=== PATIENT | male | born 1945 | race Caucasian/White ===

== ENCOUNTER 2017-07-14 00:42 | Emergency (ER) | payer OTHER ==
[2017-07-14] MEDS ORDERED: NS 0.9% 1000 ML* 1,000 ML IV ONE (01:01)
[2017-07-14] MEDS ORDERED: Pantoprazole IV* 40 MG IV ONE (01:01)
[2017-07-14] MEDS ORDERED: Morphine INJ* 4 MG/ML 1 ML SYRINGE (NEW SYRINGE VERSION) IV ONE (01:05)
[2017-07-14] MEDS ORDERED: Metoclopramide IV* 5 MG/ML 2 ML VIAL IV SLOW PU ONE (01:06)
--- NOTE | 2017-07-14 01:11 | ED ---
GI/ HPI - HPI Summary HPI Summary: 71-year-old male presents with acute onset of epigastric pain today. He states he has never had this pain before. He states it is sharp in nature. He states it is located in both his right and left upper quadrant. He denies any chest pain or shortness breath. He denies any nausea or vomiting. He denies any diarrhea. He denies any fevers. He states since the pain is starting started to feel chills. He has no previous abdominal surgeries. He denies any flank pain. occasionally pain goes to right shoulder. He denies any history of acid reflux. He states the pain started when he was laying down in bed. Nothing makes it better or worse. He had meatOptoroaf sandwich tonight for dinner. He did have an MS 2 years ago with a stent placement. He also has a history of high blood pressure. He rarely drinks ETOH. - History of Current Complaint Chief Complaint: EDAbdPain Time Seen by Provider: 07/14/17 00:53 Stated Complaint: ABD PAIN Pain Intensity: 7 - Allergy/Home Medications Allergies/Adverse Reactions: Allergies Allergy/AdvReac Type Severity Reaction Status Date / Time erythromycin base Allergy Heartburn Verified 07/14/17 00:50 Penicillins Allergy Unknown Verified 07/14/17 00:50 Reaction Details PMH/Surg Hx/FS Hx/Imm Hx Endocrine/Hematology History: Reports: Hx Anticoagulant Therapy - Before having vericose veins removed Denies: Hx Blood Disorders, Hx Blood Transfusions, Hx Bone Marrow Disease, Hx Diabetes, Hx Systemic Lupus Erythematosus, Hx Sickle Cell Disease, Hx Thyroid Disease, Hx Unexplained Bleeding, Other Endocrine/Hematological Disorders Cardiovascular History: Reports: Hx Hypertension, Hx Myocardial Infarction, Other Cardiovascular Problems/Disorders - VEIN SURG RIGHT LEG 8-10 YRS AGO, DYSLIPIDEMIA Respiratory History: Reports: Hx Sleep Apnea Denies: Hx Asthma, Hx Chronic Bronchitis, Hx Chronic Obstructive Pulmonary Disease (COPD), Hx Cystic Fibrosis, Hx Lung Cancer, Hx Pleural Effusion, Hx Pneumonia, Hx Pulmonary Edema, Hx Pulmonary Embolism, Hx Seasonal Allergies, Other Respiratory Problems/Disorders History: Reports: Hx Benign Prostatic Hyperplasia, Hx Kidney Stones Denies: Hx Acute Renal Failure, Hx Chronic Renal Failure, Hx Dialysis, Hx Kidney Infection, Other Problems/Disorders Musculoskeletal History: Reports: 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, Hx Congenital Bone Abnormalities - See back problems Denies: Hx Arthritis, Hx Bursitis, Hx Fibromyalgia, Hx Gout, Hx Orthopedic Injury, Hx Osteoporosis, Hx Scoliosis, Hx Tendonitis, Other Musculoskeletal History Sensory History: Reports: Hx Cataracts, 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, Hx Vision Problem - see above Denies: Hx Contacts or Glasses, Hx Eye Injury, Hx Eye Prosthesis, Hx Glaucoma , Hx Macular Degeneration, Hx Deafness, Hx Hearing Aid, Hx Hearing Problem, Other Sensory Impairments Opthamlomology History: Reports: Hx Cataracts, 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, Hx Vision Problem - see above Denies: Hx Contacts or Glasses, Hx Eye Injury, Hx Eye Prosthesis, Hx Glaucoma , Hx Macular Degeneration, Other Sensory Impairments - Surgical History Surgery Procedure, Year, and Place: 1967 hand injured by saw and re-implanted Hx Anesthesia Reactions: No - Immunization History Date of Tetanus Vaccine: unk Date of Influenza Vaccine: fall 2016 Immunizations Up to Date: Yes Infectious Disease History: No Infectious Disease History: Denies: Hx Clostridium Difficile, Hx Hepatitis, Hx Human Immunodeficiency Virus (HIV), Hx of Known/Suspected MRSA, Hx Shingles, Hx Tuberculosis, Hx Known/ Suspected VRE, Hx Known/Suspected VRSA, History Other Infectious Disease, Traveled Outside the [place] in Last 30 Days - Family History Known Family History: Positive: Hypertension - Social History Alcohol Use: Rare Alcohol Amount: 1-2/YEAR Substance Use Type: Reports: None Smoking Status (MU): Never Smoked Tobacco Have You Smoked in the Last Year: No Review of Systems Negative: Fever Negative: Chest Pain Negative: Shortness Of Breath Positive: Abdominal Pain. Negative: Vomiting, Diarrhea, Nausea Negative: flank pain All Other Systems Reviewed And Are Negative: Yes Physical Exam Triage Information Reviewed: Yes Vital Signs On Initial Exam: Initial Vitals Temp Pulse Resp BP Pulse Ox 96.6 F 90 18 128/78 95 07/14/17 00:48 07/14/17 00:48 07/14/17 00:48 07/14/17 00:48 07/14/17 00:48 Vital Signs Reviewed: Yes Appearance: Positive: Pain Distress Skin: Positive: Warm, Dry Head/Face: Positive: Normal Head/Face Inspection Eyes: Positive: Normal, Conjunctiva Clear Respiratory/Lung Sounds: Positive: Clear to Auscultation, Breath Sounds Present Cardiovascular: Positive: Normal, RRR Abdomen Description: Positive: Soft, Guarding, Other: - tenderness in RUQ and LUQ. Negative: CVA Tenderness (R), CVA Tenderness (L) Bowel Sounds: Positive: Present Musculoskeletal: Positive: Normal Neurological: Positive: Normal Psychiatric: Positive: Normal Diagnostics - Vital Signs Vital Signs Temp Pulse Resp BP Pulse Ox 07/14/17 00:48 96.6 F 90 18 128/78 95 - Laboratory Result Diagrams: 07/14/17 01:28 07/14/17 01:28 Lab Statement: Any lab studies that have been ordered have been reviewed, and results considered in the medical decision making process. - EKG No standard instances Cardiac Rate: NL EKG Rhythm: Sinus Rhythm ST Segment: Normal EKG Interpretation: normal sinus rhythm EKG Comparison: Other - improved Re-Evaluation - Re-Evaluation First Eval Re-Evaluation Time: 02:03 Change: Unchanged Comment: patient still in extreme amount of pain, has good bilteral pulses in lower legs, GIGU Course/Dx - Course Course Of Treatment: 71-year-old male presents with acute onset of epigastric pain today. He states he has never had this pain before. He states it is sharp in nature. He states it is located in both his right and left upper quadrant. He denies any chest pain or shortness breath. He denies any nausea or vomiting. He denies any diarrhea. He denies any fevers. He states since the pain is starting started to feel chills. He has no previous abdominal surgeries. He did have an MS 2 years ago with a stent placement. He also has a history of high blood pressure. He denies any history of acid reflux. He states the pain started when he was laying down in bed. Nothing makes it better or worse. He had meatloaf sandwich tonight for dinner. On exam has tenderness in the right and left upper quadrant. Positive Shirley signs. Patient is guarding. Lungs clear to auscultation. Heart regular rate and rhythm. EKG normal. labs: wbc normal 4. crp 4. Lfts normal. troponin normal. patient in extreme amount of pain so spoke with dr fernando will do CT without completing oral prep. patient signed out to dr fernando pending CT results for disposition - Diagnoses Differential Diagnoses - Male: Cholecystitis, Cholelithiasis, Gall Bladder Disease, Gastritis, Gerd, Pancreatitis, Peptic Ulcer Disease Provider Diagnoses: Abdominal pain Discharge - Discharge Plan Condition: Stable Disposition: OTHER Discharge Disposition Comment: signed out to dr fernando pending CT Referrals: Lesa Do MD [Primary Care Provider] -
[2017-07-14] MEDS ORDERED: HYDROmorphone INJ* 2 MG/ML CARPUJECT SYRINGE IV SLOW PU ONE ×2 (01:51→02:36)
[2017-07-14 01:56] LABS: ABS Basophils 0.1 10^3/ul (0-0.2); ABS Eosinophils 0.1 10^3/ul (0-0.6); ABS Lymphocytes 2.4 10^3/ul (1.0-4.8); ABS Monocytes 0.7 10^3/ul (0-0.8); ABS Neutrophils 7.5 10^3/ul (1.5-7.7); ABS Nucleated RBC 0.1 10^3/ul; Eosinophil % 1.3 % (0-6); Hematocrit 45 % (42-52); Hemoglobin 15.3 g/dl (14.0-18.0); Lymphocyte % 21.8 % (25-47); Mean Corpuscular HGB Conc 34 g/dl (31-36); Mean Corpuscular Hemoglobin 31 pg (27-31); Mean Corpuscular Volume 89 fL (80-94); Mean Platelet Volume 8 um3 (7.4-10.4); Nucleated Red Blood Cells % 0.5; Platelet Count 201 10^3/ul (150-450); Red Blood Count 5.02 10^6/ul (4.0-5.4); Red Cell Distribution Width 13 % (10.5-15); White Blood Count 10.8 10^3/ul (3.5-10.8)
[2017-07-14 02:06] LABS: EGFR Non-African American 89.4 (>60)
[2017-07-14] MEDS ORDERED: Iohexol 300* (CONTRAST) 10 ML SDV IV ONE (02:24)
[2017-07-14 02:51] LABS: INR 0.99 (0.77-1.02)
[2017-07-14 04:36] LABS: ABS Basophils 0 10^3/ul (0-0.2); ABS Eosinophils 0 10^3/ul (0-0.6); ABS Lymphocytes 1.2 10^3/ul (1.0-4.8); ABS Monocytes 0.8 10^3/ul (0-0.8); ABS Neutrophils 16.6 10^3/ul (1.5-7.7); ABS Nucleated RBC 0 10^3/ul; Eosinophil % 0 % (0-6); Hematocrit 39 % (42-52); Hemoglobin 13.2 g/dl (14.0-18.0); Lymphocyte % 6.4 % (25-47); Mean Corpuscular HGB Conc 34 g/dl (31-36); Mean Corpuscular Hemoglobin 30 pg (27-31); Mean Corpuscular Volume 89 fL (80-94); Mean Platelet Volume 8 um3 (7.4-10.4); Nucleated Red Blood Cells % 0.1; Platelet Count 201 10^3/ul (150-450); Red Blood Count 4.36 10^6/ul (4.0-5.4); Red Cell Distribution Width 13 % (10.5-15); White Blood Count 18.6 10^3/ul (3.5-10.8)
[2017-07-14] MEDS ORDERED: Furosemide IV* 10 MG/ML 10 ML VIAL (100 MG) ONE (05:24)
[2017-07-14 05:35] VITALS: BP 115/80
[2017-07-14] MEDS ORDERED: Ondansetron ODT TAB* 4 MG PO ONE (05:45)
--- NOTE | 2017-07-14 10:06 | RAD ---
Indication: Abdominal pain. Contrast: Administered 145.3 ml of OMNIPAQUE 300 mg/ml CT of the abdomen and pelvis was performed after oral and IV contrast administration. Coronal and sagittal reconstructed images were obtained. Lung bases demonstrate no pleural fluid, nodules or masses. Heart is enlarged without evidence of pericardial effusion. The liver is normal in size. There is a mass in the right lobe of liver measuring approximately 5.6 cm. In the inferior aspect of the mass there is contrast that is extremely dense. The possibility of a rupture of the mass should be considered. There is likely hemorrhagic ascites noted surrounding this mass in the right upper quadrant. Additional hemorrhagic ascites is noted around the spleen and in the pelvis with high density fluid. The spleen is normal in size. No adrenal masses are noted. The kidneys demonstrate symmetric nephrograms with multiple cortical cyst. No retroperitoneal adenopathy is noted. The colon is filled with stool. No dilated loops of bowel are noted. No hernias are noted. Moderate amount of ascites is noted in the pelvis. IMPRESSION: There is an hepatic mass in the inferior aspect of the right lobe of liver with suggestion of contrast extravasation. There is hemorrhagic ascites noted. Acute rupture of the mass is not excluded. This was reported by imaging quality control lead at 3:59 AM.
--- NOTE | 2017-07-15 23:31 | ED ---
I, Stefany Collado, scribed for Teddy Fernando on 07/14/17 at 0436 . Progress - Progress Note Progress Note: The patient has a bleeding liver. The patient was discussed with Dr. Kris Gracia at 04:20, and [facility] accepted the transfer at 04:45. Air transportation was not available at this time, so the patient will be transferred by ambulance. The patient is diagnosed with Abdominal Pain and Liver Hemorrhage. Re-Evaluation - Re-Evaluation First Eval Re-Evaluation Time: 02:03 Change: Unchanged Comment: patient still in extreme amount of pain, has good bilteral pulses in lower legs, Course/Dx - Course Course Of Treatment: 71-year-old male presents with acute onset of epigastric pain today. He states he has never had this pain before. He states it is sharp in nature. He states it is located in both his right and left upper quadrant. He denies any chest pain or shortness breath. He denies any nausea or vomiting. He denies any diarrhea. He denies any fevers. He states since the pain is starting started to feel chills. He has no previous abdominal surgeries. He did have an KS 2 years ago with a stent placement. He also has a history of high blood pressure. He denies any history of acid reflux. He states the pain started when he was laying down in bed. Nothing makes it better or worse. He had meatloaf sandwich tonight for dinner. On exam has tenderness in the right and left upper quadrant. Positive Shirley signs. Patient is guarding. Lungs clear to auscultation. Heart regular rate and rhythm. EKG normal. labs: wbc normal 4. crp 4. Lfts normal. troponin normal. patient in extreme amount of pain so spoke with dr fernando will do CT without completing oral prep. patient signed out to dr fernando pending CT results for disposition - Diagnoses Provider Diagnoses: Abdominal pain, Liver hemorrhage - Provider Notifications Discussed Care Of Patient With: Dr. Kris Gracia Time Discussed With Above Provider: 04:20 Instructed by Provider To: Transfer - Discussed patient with Dr. Kris Gracia. Called [facility] @ 04:45, and they have accepted the transfer patient. The documentation as recorded by the Tobias jeffries Jennifer accurately reflects the service I personally performed and the decisions made by , Teddy Fernando.
== END 2017-07-14 05:35 | disposition short-term general hospital (02) ==
LOC: ED 00:42
DX: R10.13 Epigastric pain (principal); K76.89 Other specified diseases of liver; Z79.01 Long term (current) use of anticoagulants; Z86.79 Personal history of other diseases of the circulatory system
CPT/HCPCS: 36415; 36430; 74177; 80053; 83605; 83690; 84484; 85025; 85610; 85730; 86141; 86850; 86900; 86901; 86922; 93005; 99284; J1170; J1940; J2270; J2765; P9040; Q9967

== ENCOUNTER 2018-07-03 21:18 | Emergency (ER) | payer OTHER ==
[2018-07-03] MEDS ORDERED: NS 0.9% 1000 ML** 1,000 ML IV.FLUID IV ONE ×2 (21:45)
[2018-07-03] MEDS ORDERED: Morphine VIAL* 10 MG/ML 1 ML VIAL IV ONE (21:47)
[2018-07-03] MEDS ORDERED: Ondansetron INJ* 2 MG/ML VIAL IV ONE (21:48)
--- NOTE | 2018-07-03 22:01 | ED ---
HPI Chest Pain - HPI Summary HPI Summary: This patient is a 72 year old male presenting to [facility] accompanied by with a chief complaint of chest pain since earlier today. Patient has a hx of cardiac disease (in 2015), as well as liver cancer. Patients states that the patient has been sick for the past week with a low-grade fever and has been consistently lethargic. Patient presents today in the ED because the pain was sudden onset and began 2 hours ago. The pain is located in the lower chest and upper abd. The pain radiates to his back. The pain is rated 7/10 in severity. Symptoms aggravated by position change or deep breaths. Symptoms alleviated by nothing. Patient additionally reports upper abd pain. - History of Current Complaint Chief Complaint: EDAbdPain Time Seen by Provider: 07/03/18 21:36 Hx Obtained From: Patient Onset/Duration: Started Hours Ago, Still Present Timing: Constant Initial Severity: Moderate Pain Intensity: 7 Pain Scale Used: 0-10 Numeric Chest Pain Location: Lower Sternal Chest Pain Radiates: Yes Chest Pain Radiates To:: Back Aggravating Factor(s): Position, Deep Breaths Alleviating Factor(s): Nothing Associated Signs and Symptoms: Positive: Other: - upper abd pain - Allergy/Home Medications Allergies/Adverse Reactions: Allergies Allergy/AdvReac Type Severity Reaction Status Date / Time erythromycin base Allergy Heartburn Verified 07/03/18 21:23 Penicillins Allergy Unknown Verified 07/03/18 21:23 Reaction Details Home Medications: Home Medications Xarelto 20 mg 20 mg PO DAILY 07/03/18 [History Confirmed 07/03/18] PMH/Surg Hx/FS Hx/Imm Hx Previously Healthy: No Endocrine/Hematology History: Reports: Hx Anticoagulant Therapy - Before having vericose veins removed Denies: Hx Blood Disorders, Hx Blood Transfusions, Hx Bone Marrow Disease, Hx Diabetes, Hx Systemic Lupus Erythematosus, Hx Sickle Cell Disease, Hx Thyroid Disease, Hx Unexplained Bleeding, Other Endocrine/Hematological Disorders Cardiovascular History: Reports: Hx Deep Vein Thrombosis, Hx Hypertension, Hx Myocardial Infarction, Other Cardiovascular Problems/Disorders - VEIN SURG RIGHT LEG 8-10 YRS AGO, DYSLIPIDEMIA Respiratory History: Reports: Hx Pulmonary Embolism - saddle, Hx Sleep Apnea Denies: Hx Asthma, Hx Chronic Bronchitis, Hx Chronic Obstructive Pulmonary Disease (COPD), Hx Cystic Fibrosis, Hx Lung Cancer, Hx Pleural Effusion, Hx Pneumonia, Hx Pulmonary Edema, Hx Seasonal Allergies, Other Respiratory Problems /Disorders GI History: Reports: Other GI Disorders - Hx liver bleeding History: Reports: Hx Benign Prostatic Hyperplasia, Hx Kidney Stones Denies: Hx Acute Renal Failure, Hx Chronic Renal Failure, Hx Dialysis, Hx Kidney Infection, Hx Renal Disease, Other Problems/Disorders Musculoskeletal History: Reports: 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, Hx Congenital Bone Abnormalities - See back problems Denies: Hx Arthritis, Hx Bursitis, Hx Fibromyalgia, Hx Gout, Hx Orthopedic Injury, Hx Osteoporosis, Hx Scoliosis, Hx Tendonitis, Other Musculoskeletal History Sensory History: Reports: Hx Cataracts, 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, Hx Vision Problem - see above Denies: Hx Contacts or Glasses, Hx Eye Injury, Hx Eye Prosthesis, Hx Glaucoma , Hx Macular Degeneration, Hx Deafness, Hx Hearing Aid, Hx Hearing Problem, Other Sensory Impairments Opthamlomology History: Reports: Hx Cataracts, 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, Hx Vision Problem - see above Denies: Hx Contacts or Glasses, Hx Eye Injury, Hx Eye Prosthesis, Hx Glaucoma , Hx Macular Degeneration, Other Sensory Impairments - Surgical History Surgery Procedure, Year, and Place: 1967 hand injured by saw and re-implanted, rt leg "vein surgery", hepatic artery embolization Hx Anesthesia Reactions: No - Immunization History Date of Tetanus Vaccine: unk Date of Influenza Vaccine: fall 2016 Infectious Disease History: No Infectious Disease History: Denies: Hx Clostridium Difficile, Hx Hepatitis, Hx Human Immunodeficiency Virus (HIV), Hx of Known/Suspected MRSA, Hx Shingles, Hx Tuberculosis, Hx Known/ Suspected VRE, Hx Known/Suspected VRSA, History Other Infectious Disease, Traveled Outside the [place] in Last 30 Days - Family History Known Family History: Positive: Hypertension - Social History Lives: With Family Alcohol Use: Rare Alcohol Amount: 1-2/YEAR Hx Substance Use: No Substance Use Type: Reports: None Hx Tobacco Use: No Smoking Status (MU): Never Smoked Tobacco Have You Smoked in the Last Year: No Review of Systems Negative: Fever Positive: Chest Pain Positive: Abdominal Pain Musculoskeletal: Other - back pain All Other Systems Reviewed And Are Negative: Yes Physical Exam - Summary Physical Exam Summary: VITAL SIGNS: Reviewed. GENERAL: Patient is a well-developed and nourished male who is lying comfortable in the stretcher. Patient is not in any acute respiratory distress. HEAD AND FACE: No signs of trauma. No ecchymosis, hematomas or skull depressions. No sinus tenderness. EYES: PERRLA, EOMI x 2, No injected conjunctiva, no nystagmus. EARS: Hearing grossly intact. Ear canals and tympanic membranes are within normal limits. MOUTH: Oropharynx within normal limits. NECK: Supple, trachea is midline, no adenopathy, no JVD, no carotid bruit, no c- spine tenderness, neck with full ROM. CHEST: Symmetric, no tenderness at palpation LUNGS: Clear to auscultation bilaterally. No wheezing or crackles. CVS: Regular rate and rhythm, S1 and S2 present, no murmurs or gallops appreciated. ABDOMEN: RUQ tenderness, abd distention EXTREMITIES: FROM in all major joints, no edema, no cyanosis or clubbing. NEURO: Alert and oriented x 3. No acute neurological deficits. Speech is normal and follows commands. SKIN: Dry and warm Triage Information Reviewed: Yes Vital Signs On Initial Exam: Initial Vitals Temp Pulse Resp BP Pulse Ox 97.9 F 104 20 140/77 93 07/03/18 21:19 07/03/18 21:19 07/03/18 21:19 07/03/18 21:19 07/03/18 21:19 Vital Signs Reviewed: Yes Diagnostics - Vital Signs Vital Signs Temp Pulse Resp BP Pulse Ox 07/03/18 21:19 97.9 F 104 20 140/77 93 - Laboratory Result Diagrams: 07/03/18 22:18 07/03/18 22:18 Lab Statement: Any lab studies that have been ordered have been reviewed, and results considered in the medical decision making process. - Radiology CXR Radiology Interpretation Completed By: ED Physician Summary of Radiographic Findings: CXR reveals, per ED physician, Poor inspiratory effort with bilateral basal atelectasis. Pending official report. - CT CTA Chest/Abd/Pel CT Interpretation Completed By: Radiologist Summary of CT Findings: CTA Chest/Abd/Pel reveals, per radiologist, IMPRESSION: 1. There is a new indeterminate right upper lobe pulmonary nodule measuring 7.5 mm maximum dimension and stable additional 5 mm right middle lobe indeterminate pulmonary nodule.For patients at low risk (minimal or absent history of smoking and of other known risk factors), recommend CT at 3-6 months, then consider CT at 18-24 months. For patients at high risk (history of smoking or of other known risk factors), recommend CT at 3-6 months, then CT at 18-24 months. ( Buddy et al., Fleischner Society, 2017). 2. The previously seen bilateral acute pulmonary emboli are resolved with no visible residual or new pulmonary embolism. 3. No aortic dissection. IMPRESSION: 1. Stable colonic diverticulosis without evidence for acute diverticulitis. 2. There is significant increase in size and number of multiple now confluent mass lesions in the right lobe of the liver which now measure in aggregate a maximum of 13.3 cm and previously measured a maximum of 5.0 cm, suspicious for worsening of hepatic metastases. There is a new 0.8 cm low attenuation mass near the dome of the liver, also possible hepatic metastasis. 3. There is slight decrease in quantity of right perihepatic hemorrhage and resolution of previously seen perisplenic hemorrhage and decreased additional hemorrhage along the left paracolic gutter into the pelvis since the prior exam with no signs of IV contrast extravasation/active arterial bleeding. 4. No aortic dissection. ED physician has reviewed this radiology report. - EKG 2153 Cardiac Rate: NL EKG Rhythm: Sinus Rhythm - 99 BPM Summary of EKG Findings: An EKG, taken 2153, reveals NSR (99 BPM), normal axis, normal intervals, no ischemic changes. Chest Pain Course/Dx - Course Course Of Treatment: This patient is a 72 year old male presenting to [facility] accompanied by with a chief complaint of chest pain since earlier today. Patient has a hx of cardiac disease (in 2015), as well as liver cancer. Patient s states that the patient has been sick for the past week with a low-grade fever and has been consistently lethargic. Patient presents today in the ED because the pain was sudden onset and began 2 hours ago. An EKG, taken 2153, reveals NSR (99 BPM), normal axis, normal intervals, no ischemic changes. CXR reveals, per ED physician, Poor inspiratory effort with bilateral basal atelectasis. Pending official report. CTA Chest/Abd/Pel reveals, per radiologist , IMPRESSION: 1. There is a new indeterminate right upper lobe pulmonary nodule measuring 7.5 mm maximum dimension and stable additional 5 mm right middle lobe indeterminate pulmonary nodule.For patients at low risk (minimal or absent history of smoking and of other known risk factors), recommend CT at 3-6 months , then consider CT at 18-24 months. For patients at high risk (history of smoking or of other known risk factors), recommend CT at 3-6 months, then CT at 18-24 months. (Buddy et al., Fleischner Society, 2017). 2. The previously seen bilateral acute pulmonary emboli are resolved with no visible residual or new pulmonary embolism. 3. No aortic dissection. IMPRESSION: 1. Stable colonic diverticulosis without evidence for acute diverticulitis. 2. There is significant increase in size and number of multiple now confluent mass lesions in the right lobe of the liver which now measure in aggregate a maximum of 13.3 cm and previously measured a maximum of 5.0 cm, suspicious for worsening of hepatic metastases. There is a new 0.8 cm low attenuation mass near the dome of the liver, also possible hepatic metastasis. 3. There is slight decrease in quantity of right perihepatic hemorrhage and resolution of previously seen perisplenic hemorrhage and decreased additional hemorrhage along the left paracolic gutter into the pelvis since the prior exam with no signs of IV contrast extravasation/active arterial bleeding. 4. No aortic dissection. ED physician has reviewed this radiology report. Bloodwork Obtained. Urinalysis Obtained. In the ED course the patient was given NS 0.9% bolus IV, Morphine, Zofran, Iohexol. We discussed patient care with Dr. Plata (Hospitalist) at 0205 and they agreed to accept the patient. Patient will be admitted with a dx of abd pain, liver cancer. The patient is agreeable with this plan. - Diagnoses Provider Diagnoses: Abdominal pain, Liver cancer - Provider Notifications Discussed Care Of Patient With: Radha Plata - Hospitalist Time Discussed With Above Provider: 02:05 - We discussed patient care with Dr. Plata (Hospitalist) at 0205 and they agreed to accept the patient. Instructed by Provider To: Admit As Inpatient Discharge - Sign-Out/Discharge Documenting (check all that apply): Patient Departure Patient Received Moderate/Deep Sedation with Procedure: No - Discharge Plan Condition: Stable Disposition: ADMITTED TO [facility] Referrals: Lesa Do MD [Primary Care Provider] - - Billing Disposition and Condition Condition: STABLE Disposition: Admitted to [facility] - Attestation Statements Document Initiated by Scribe: Yes Documenting Scribe: Ciera Allred Provider For Whom Mp is Documenting (Include Credential): Haris Khan MD Scriborion Attestation: I, Ciera Allred, scribed for Haris Khan MD on 07/04/18 at 0247. Scribe Documentation Reviewed: Yes Provider Attestation: The documentation as recorded by the Ciera jeffries accurately reflects the service I personally performed and the decisions made by me, Haris Khan MD Status of Scribe Document: Viewed
[2018-07-03 22:27] LABS: ABS Basophils 0.1 10^3/ul (0-0.2); ABS Eosinophils 0.1 10^3/ul (0-0.6); ABS Lymphocytes 0.9 10^3/ul (1.0-4.8); ABS Monocytes 0.7 10^3/ul (0-0.8); ABS Neutrophils 9.4 10^3/ul (1.5-7.7); ABS Nucleated RBC 0 10^3/ul; Eosinophil % 0.6 %; Hematocrit 43 % (42-52); Hemoglobin 14.4 g/dl (14.0-18.0); Lymphocyte % 7.8 %; Mean Corpuscular HGB Conc 34 g/dl (31-36); Mean Corpuscular Hemoglobin 30 pg (27-31); Mean Corpuscular Volume 89 fL (80-94); Mean Platelet Volume 7.7 fL (7.4-10.4); Nucleated Red Blood Cells % 0; Platelet Count 218 10^3/ul (150-450); Red Blood Count 4.81 10^6/ul (4.00-5.40); Red Cell Distribution Width 14 % (10.5-15); White Blood Count 11.1 10^3/ul (3.5-10.8)
[2018-07-03 22:39] LABS: Activated Partial Thrombo Time 29.5 seconds (26.0-36.3); INR 1.29 (0.77-1.02)
[2018-07-03 22:44] LABS: Albumin 3.7 g/dL (3.2-5.2); Albumin/Globulin Ratio 1.1 (1-3); BUN/Creatinine Ratio 22.5 (8-20); C Reactive Protein 40.45 mg/L (<8.01); Calcium 9.3 mg/dL (8.6-10.3); EGFR African American 87.4 (>60); EGFR Non-African American 72.2 (>60); Globulin 3.3 g/dL (2-4); Potassium 4.2 mmol/L (3.5-5.0)
[2018-07-03] MEDS ORDERED: Iohexol 350* (CONTRAST) 500 ML MDV IV ONE (22:49)
[2018-07-03 23:53] LABS: Urine Appearance Cloudy; Urine Bacteria Absent (Absent); Urine Bilirubin Negative (Negative); Urine Blood 3+ (Negative); Urine Color Amber; Urine Glucose Negative (Negative); Urine Ketones Trace (Negative); Urine Nitrite Negative (Negative); Urine Protein Negative (Negative); Urine Red Blood Cell 3+(>10/hpf) (Absent); Urine Specific Gravity 1.025 (1.010-1.030); Urine Urobilinogen Negative (Negative); Urine White Blood Cell 1+(6-10/hpf) (Absent)
[2018-07-04] MEDS ORDERED: Morphine VIAL* 10 MG/ML 1 ML VIAL IV ONE ×2 (00:16→07:22)
[2018-07-04] MEDS ORDERED: Morphine VIAL* 10 MG/ML 1 ML VIAL ONE (00:18)
[2018-07-04 04:58] LABS: Hematocrit 39 % (42-52); Hemoglobin 13.2 g/dl (14.0-18.0)
--- NOTE | 2018-07-04 06:03 | ED ---
Progress - Progress Note Progress Note: Dr. Plata (Hospitalist) is not comfortable admitting the patient here, as there is a high risk of possible bleeding. We will attempt to transfer the patient to a tertiary facility. We spoke to the interventional radiologist, Dr. Becerra at 0550, who stated that they do not have access to the patients images and so cannot tell me if the patients symptoms are chronic or acute. Afterwards, we discussed the case with Dr. Rothman, a fellow for Dr. Ramachandran ( Oncologist), who accepted the patient for transfer to [facility] in [facility]. We called the transfer center at 0603. Course/Dx - Course Course Of Treatment: This patient is a 72 year old male presenting to [facility] accompanied by with a chief complaint of chest pain since earlier today. Patient has a hx of cardiac disease (in 2015), as well as liver cancer. Patient s states that the patient has been sick for the past week with a low-grade fever and has been consistently lethargic. Patient presents today in the ED because the pain was sudden onset and began 2 hours ago. An EKG, taken 2153, reveals NSR (99 BPM), normal axis, normal intervals, no ischemic changes. CXR reveals, per ED physician, Poor inspiratory effort with bilateral basal atelectasis. Pending official report. CTA Chest/Abd/Pel reveals, per radiologist , IMPRESSION: 1. There is a new indeterminate right upper lobe pulmonary nodule measuring 7.5 mm maximum dimension and stable additional 5 mm right middle lobe indeterminate pulmonary nodule.For patients at low risk (minimal or absent history of smoking and of other known risk factors), recommend CT at 3-6 months , then consider CT at 18-24 months. For patients at high risk (history of smoking or of other known risk factors), recommend CT at 3-6 months, then CT at 18-24 months. (Buddy et al., Fleischner Society, 2017). 2. The previously seen bilateral acute pulmonary emboli are resolved with no visible residual or new pulmonary embolism. 3. No aortic dissection. IMPRESSION: 1. Stable colonic diverticulosis without evidence for acute diverticulitis. 2. There is significant increase in size and number of multiple now confluent mass lesions in the right lobe of the liver which now measure in aggregate a maximum of 13.3 cm and previously measured a maximum of 5.0 cm, suspicious for worsening of hepatic metastases. There is a new 0.8 cm low attenuation mass near the dome of the liver, also possible hepatic metastasis. 3. There is slight decrease in quantity of right perihepatic hemorrhage and resolution of previously seen perisplenic hemorrhage and decreased additional hemorrhage along the left paracolic gutter into the pelvis since the prior exam with no signs of IV contrast extravasation/active arterial bleeding. 4. No aortic dissection. ED physician has reviewed this radiology report. Bloodwork Obtained. Urinalysis Obtained. In the ED course the patient was given NS 0.9% bolus IV, Morphine, Zofran, Iohexol. We discussed patient care with Dr. Plata (Hospitalist) at 0205 and they agreed to accept the patient. Patient will be admitted with a dx of abd pain, liver cancer. The patient is agreeable with this plan. Dr. Plata ( Hospitalist) is not comfortable admitting the patient here, as there is a high risk of possible bleeding. We will attempt to transfer the patient to a tertiary facility. We spoke to the interventional radiologist, Dr. Becerra at 0550, who stated that they do not have access to the patients images and so cannot tell me if the patients symptoms are chronic or acute. Afterwards, we discussed the case with Dr. Rothman, a fellow for Dr. Ramachandran (Oncologist), who accepted the patient for transfer to [facility] in [facility]. Patient is agreeable to this plan. This patient will be signed out to Dr. Shaw at the end of shift, pending transfer center call and transfer finalization. - Diagnoses Provider Diagnoses: Abdominal pain, Liver cancer - Provider Notifications Time Discussed With Above Provider: 05:45 - Dr. Plata (Hospitalist) is not comfortable admitting the patient here, as there is a high risk of possible bleeding. We will attempt to transfer the patient to a tertiary facility. Instructed by Provider To: Transfer - we discussed the case with Dr. Rothman, a fellow for Dr. Ramachandran (Oncologist), who accepted the patient for transfer to [facility] in [facility]. Admit/Transition Orders Completed By ED Provider: Yes - Critical Care Time Critical Care Time: 75-104 min - 100 minutes Discharge - Sign-Out/Discharge Documenting (check all that apply): Sign-Out Patient Signing out patient TO: Jay Shaw Patient Received Moderate/Deep Sedation with Procedure: No - Discharge Plan Condition: Stable Disposition: TRANS HIGHER LVL OF CARE FAC Referrals: Lesa Do MD [Primary Care Provider] - - Attestation Statements Document Initiated by Scribe: Yes Documenting Scribe: Ciera Allred Provider For Whom Scribe is Documenting (Include Credential): Haris Khan MD Scribe Attestation: Ciera Catalan, scribed for Haris Khan MD on 07/04/18 at 0716. Status of Scribe Document: Ready
--- NOTE | 2018-07-04 06:27 | PN ---
Progress Note - Progress Note Date of Service: 07/04/18 Note: Spoke with IR Fellow prestressed concrete laborer, she was not able to access patient's records from home. Spoke with promotional advertising assistant at [facility] who reported last imaging was in that showed 4.3 x 2.5 right liver mass. No perihepatic or perisplenic hemorrhage noted. I spoke with Dr. Khan, patient and , my concern for the size of the mass with new perihepatic and perisplenic hemorrhage despite no active bleeding. Could be an occult bleed or the mass is tamponading the hepatic rupture. Regardless, I recommend patient be transferred to [facility]. H/H did dropped 1 point over 6 hours.
[2018-07-04 07:37] VITALS: BP 110/70
--- NOTE | 2018-07-04 07:44 | ED ---
Progress - Progress Note Progress Note: The pt is a signout from Dr. Khan pending transfer finalization. I spoke with Dr. Davila at [facility] and discussed the pt's current condition as well as the drop in hemoglobin in the second CBC, who recommended consulting with [facility] IR department if the patient has active bleeding. The patient will be accepted via transfer if the bleeding is not active. As of 805, Repeated CBC is stable, the physician at [facility], Eduard Ramachandran MD., stated that they presently have no beds open so they cannot accept the patient at this time. Spoke with Dr. Ramachandran again at 911, he wants the pt to make the choice about whether or not he can go home with pain medication and get the embolization done on this coming 07/07. If the patient were to be transferred now, he would be in the emergency department for a long time. I spoke with the patient and his at around 0920 and they both agreed that the patient should go home with a pain medication and still go to his appointment scheduled this coming Saturday. The patient also agrees to come back if anything changes. - Consult/PCP Time Called: 07:21 Consult Reason/Comments: transfer - see HPI - Additional EKG/XRAY/Consults Time Called: 08:06 Reason/Comments: see HPI Course/Dx - Course Course Of Treatment: The pt is a signout from Dr. Khan. I spoke with Dr. Davila at [facility] and discussed the pt's current condition as well as the drop in hemoglobin in the second CBC, who recommended consulting with [facility] IR department if the patient has active bleeding. The patient will be accepted via transfer if the bleeding is not active. The pt's repeat CBC is stable, but as per Dr. Eduard Ramachandran, [facility] has no beds so the pt cannot yet be transferred. Spoke with Dr. Ramachandran again at 911, he wants the pt to make the choice about whether or not he can go home with pain medication and get the embolization done on this coming 07/07. If the patient were to be transferred now, he would be in the emergency department for a long time. I spoke with the patient and his at around 0920 and they both agreed that the patient should go home with a pain medication and still go to his appointment scheduled this coming Saturday. The patient also agrees to come back if anything changes. - Diagnoses Provider Diagnoses: Abdominal pain Discharge - Sign-Out/Discharge Documenting (check all that apply): Patient Departure, Receiving Sign-Out Receiving patient FROM: Haris Khan Patient Received Moderate/Deep Sedation with Procedure: No - Discharge Plan Condition: Stable Disposition: HOME Prescriptions: Oxycodone TAB(NF) [Oxycodone HCl 10 MG] 10 mg PO Q6H PRN #20 tab MDD 4 PRN Reason: Pain Referrals: Lesa Do MD [Primary Care Provider] - Additional Instructions: Follow up with your appointment on Saturday. BE SURE TO RETURN TO THE EMERGENCY DEPARTMENT FOR CHANGING OR WORSENING SYMPTOMS. - Billing Disposition and Condition Condition: STABLE Disposition: Home - Attestation Statements Document Initiated by Mp: Yes Documenting Scribe: Radha Jaramillo Provider For Whom Mp is Documenting (Include Credential): Jay Shaw MD. Scribe Attestation: Radha Catalan scribed for Jay Shaw MD. on 07/05/18 at 0940. Scribe Documentation Reviewed: Yes Provider Attestation: The documentation as recorded by the Radha jeffries accurately reflects the service I personally performed and the decisions made by Tonia baker MD. Status of Scribe Document: Viewed
[2018-07-04 07:53] LABS: ABS Basophils 0 10^3/ul (0-0.2); ABS Eosinophils 0.1 10^3/ul (0-0.6); ABS Lymphocytes 1.3 10^3/ul (1.0-4.8); ABS Monocytes 0.8 10^3/ul (0-0.8); ABS Neutrophils 7.3 10^3/ul (1.5-7.7); ABS Nucleated RBC 0 10^3/ul; Eosinophil % 0.7 %; Hematocrit 40 % (42-52); Hemoglobin 13.4 g/dl (14.0-18.0); Lymphocyte % 13.9 %; Mean Corpuscular HGB Conc 34 g/dl (31-36); Mean Corpuscular Hemoglobin 30 pg (27-31); Mean Corpuscular Volume 90 fL (80-94); Mean Platelet Volume 7.7 fL (7.4-10.4); Nucleated Red Blood Cells % 0; Platelet Count 181 10^3/ul (150-450); Red Blood Count 4.45 10^6/ul (4.00-5.40); Red Cell Distribution Width 14 % (10.5-15); White Blood Count 9.6 10^3/ul (3.5-10.8)
--- NOTE | 2018-07-04 08:57 | CONS ---
CC: Lesa Quiroga MD; Dr. Lombardo, Interventional Radiologist at [facility].* CONSULTATION REPORT: DATE OF CONSULT: 07/04/18 TIME OF EVALUATION: 0300. PRIMARY CARE PHYSICIAN: Lesa Quiroga MD. CHIEF COMPLAINT: Abdominal pain. HISTORY OF PRESENT ILLNESS: This is a 72-year-old male with a past medical history of hepatocellular carcinoma, complicated by hepatic artery bleeding that had required embolization at [facility]. Patient states he had a rupture of his hepatic artery back in June and that was when they discovered he had a hepatocellular carcinoma. He had a prolonged hospitalization at [place], complicated by aspiration pneumonia when he was intubated. Since then he has been getting his care at [facility]. They have been doing embolization through Interventional Radiology with Dr. Lombardo. The last embolization was back in October 2017. They went last Saturday of 06/24/18 to have embolization, then went in and they were unable to release the specific medication for the procedure they were having a malfunction. He is scheduled to return on the for a repeat of this [employer] embolization. Patient was dropping his son off and was coming home around 8 p.m. this evening and developed right upper quadrant pain similar to the pain he had when he had his initial rupture of the hepatic artery back in June 2017. Patient had labs and imaging done here, we do not have a recent comparison of his CAT scans, it is unclear how much has changed recently. I have since put a call out to the interventional radiologist manager organizational at [facility] to discuss the findings and waiting to hear back. Patient denies any nausea, vomiting, diarrhea. He has had normal bowels. He denies any URI symptoms. A few days ago he had a low-grade temp, subjective fever, but it resolved the following day. No urinary symptoms. Otherwise, review of systems is negative. In the emergency room, patient received 8 mg of morphine, 8 mg of Zofran, and 2 L of fluid. He states he feels somewhat better. He was able to ambulate to the bathroom without issue. PAST MEDICAL HISTORY: 1. History of hepatocellular carcinoma, diagnosed in June 2017, follows at [facility] with embolization procedures, complicated by hepatic artery bleeding. 2. History of PE with DVT, diagnosed in July 2017. 3. Hypertension. 4. History of BPH. 5. History of kidney stones. 6. Patient is legally blind in the right eye. MEDICATIONS: 1. Xarelto 20 mg p.o. daily. 2. Losartan/HCTZ 160/25 one tab daily in the morning. 3. Aspirin 81 mg daily. ALLERGIES: ERYTHROMYCIN, PENICILLIN. FAMILY HISTORY: Reviewed, noncontributory. SOCIAL HISTORY: Patient lives with his , who is his healthcare proxy. No smoking or alcohol use. 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 Code status is full code. REVIEW OF SYSTEMS: A 14-point review of systems as mentioned in the HPI, otherwise negative. PHYSICAL EXAM: Vitals: Temp 97.9, pulse rate 79, respiratory rate 21, oxygen saturation 95% on room air, blood pressure 107/72. General: In no acute distress, resting comfortably with his at the bedside. HEENT: Head is normocephalic. Pupils are equal and reactive. He has a right eye droop. Oropharynx, mucous membranes are moist. Neck: Supple. No lymphadenopathy. Cardiac: Regular rate and rhythm. Soft, systolic murmur heard throughout. Respiratory: Clear to auscultation. No wheezes, rhonchi, or rales. Abdomen: Hyperactive bowel sounds, some mild distention, tenderness of hepatomegaly over the right upper quadrant. Extremities: No clubbing, cyanosis, or edema. +1 DP. Neurologic: Alert and oriented x3. No gross focal neurological deficits. LABORATORY DATA: White count 11.1, hemoglobin 14.4, hematocrit 42, platelets 218. INR is 1.29. Sodium 136, potassium 4.2, chloride 102, bicarb 23, BUN 23, creatinine 1.02. Glucose 143. Bilirubin is 1, AST is 34, ALT is 57, alk phos is 117. CRP is 40. UA shows +3 blood, +1 whites, +3 reds, absent bacteria. Chest, abdomen, and pelvis CTA, there is new indeterminate right upper lobe pulmonary nodule measuring 7.5 mm and stable 5 mm right middle lobe indeterminate pulmonary nodule. The previously seen bilateral acute pulmonary emboli resolved with no visible residual or new pulmonary embolism. Stable colonic diverticulosis without evidence of acute diverticulitis, significant increase in size and number of multiple nonconfluent mass lesions in the right lobe of the liver, which now measuring aggregate a maximum of 13.3 cm and previously measured of maximum 5.0 cm suspicious for worsening hepatic metastasis. There is a new 0.8 cm low attenuation mass noted near the dome of the liver also possible hepatic metastasis. There is slight decrease in quantity of right perihepatic hemorrhage and resolution of previously seen perisplenic hemorrhage and decreased additional hemorrhage along the left pericolic gutter, into the pelvis, since the prior exam with no signs of IV contrast extravasation, active arterial bleeding. No aortic dissection. ASSESSMENT: This is a 72-year-old male with past medical history of hepatocellular carcinoma, which is complicated by hepatic artery bleeding followed at [facility], who presents with right upper quadrant abdominal pain. Right upper quadrant pain. The concern is worsening bleeding. He has no active bleeding currently, but with this new onset of pain, which is similar to his past pain when he had a rupture, it is possible there is some complication related to his hepatocellular carcinoma that cannot be managed here. I reached out to [facility] to talk to the IR physician manager organizational to discuss further workup and if patient is an appropriate candidate for transfer if he could be sent home and followed up with them in the morning. We need to hear back from them and we will follow up with them and the family once I hear back. If they recommend admission, then we will admit him for pain control and resume his medications as prescribed. PATIENT TIME: Greater than 60 minutes was spent doing this consultation, more than half the time spent in direct patient contact. [id number]/CPS #: [id number] JEFF
--- NOTE | 2018-07-04 19:15 | ED ---
Progress - Progress Note Progress Note: The patient was seen late last night in the emergency department complaining of left third G, chest pain, low-grade fevers. I was called by the lab with positive aerobic blood cultures growing gram-positive cocci in clusters, apparently staph aureus and MRSA negative by PCR. I've informed Isramona Juleshany the charge nurse as well as [facility] ward maid that the patient needs to be brought back today emergency department emergently, preferably by ambulance, for IV antibiotics, admission versus transfer to [facility]. - Consult/PCP Time Called: 07:21 Consult Reason/Comments: transfer - see HPI - Additional EKG/XRAY/Consults Time Called: 08:06 Reason/Comments: see HPI Course/Dx - Course Course Of Treatment: The pt is a signout from Dr. Khan. I spoke with Dr. Davila at [facility] and discussed the pt's current condition as well as the drop in hemoglobin in the second CBC, who recommended consulting with [facility] [place] if the patient has active bleeding. The patient will be accepted via transfer if the bleeding is not active. The pt's repeat CBC is stable, but as per Dr. Eduard Ramachandran, [facility] has no beds so the pt cannot yet be transferred. Spoke with Dr. Ramachandran again at 0912, he wants the pt to make the choice about whether or not he can go home with pain medication and get the embolization done on this coming Saturday, 07/07. If the patient were to be transferred now, he would be in the emergency department for a long time. I spoke with the patient and his at around 0920 and they both agreed that the patient should go home with a pain medication and still go to his appointment scheduled this coming Saturday. The patient also agrees to come back if anything changes. - Diagnoses Provider Diagnoses: Abdominal pain - Provider Notifications Time Discussed With Above Provider: 05:45 - Dr. Plata (Hospitalist) is not comfortable admitting the patient here, as there is a high risk of possible bleeding. We will attempt to transfer the patient to a tertiary facility. Instructed by Provider To: Transfer - we discussed the case with Dr. Rothman, a fellow for Dr. Ramachandran (Oncologist), who accepted the patient for transfer to [facility] in [place]. Admit/Transition Orders Completed By ED Provider: Yes - Critical Care Time Critical Care Time: 75-104 min - 100 minutes Discharge - Sign-Out/Discharge Documenting (check all that apply): Post-Discharge Follow Up Patient Received Moderate/Deep Sedation with Procedure: No - Discharge Plan Condition: Stable Disposition: HOME Prescriptions: Oxycodone TAB(NF) [Oxycodone HCl 10 MG] 10 mg PO Q6H PRN #20 tab MDD 4 PRN Reason: Pain Referrals: Lesa Do MD [Primary Care Provider] - Additional Instructions: Follow up with your appointment on Saturday. BE SURE TO RETURN TO THE EMERGENCY DEPARTMENT FOR CHANGING OR WORSENING SYMPTOMS. - Billing Disposition and Condition Condition: STABLE Disposition: Home
== END 2018-07-04 10:51 | disposition home or self-care (01) ==
LOC: ED 21:18
DX: R10.11 Right upper quadrant pain (principal); C22.8 Malignant neoplasm of liver, primary, unspecified as to type; R91.1 Solitary pulmonary nodule; K57.30 Diverticulosis of large intestine without perforation or abscess without bleeding; R07.2 Precordial pain; I10 Essential (primary) hypertension; Z86.718 Personal history of other venous thrombosis and embolism; Z79.01 Long term (current) use of anticoagulants; Z79.82 Long term (current) use of aspirin; Z88.1 Allergy status to other antibiotic agents; Z88.0 Allergy status to penicillin
CPT/HCPCS: 36415; 71045; 71275; 74177; 80053; 81003; 81015; 83605; 83880; 84484; 85014; 85018; 85025; 85610; 85730; 86140; 86850; 86900; 86901; 87040; 87077; 87086; 87150; 87205; 93005; 96361; 96374; 96375; 96376; 99283; J2270; J2405; Q9967

== ENCOUNTER 2018-11-12 16:10 | Emergency (ER) | payer OTHER ==
--- NOTE | 2018-11-12 18:53 | ED ---
Shortness of Breath - HPI Summary HPI Summary: Pt is a 73 y/o M presenting to [facility] with his and a CC of a persistent productive cough with chest pain that spreads across his anterior chest. He also states that the coughing has gotten worse since coming off of Eliquis. He states that position changes aggravate his cough and so does talking a lot. He also reports that when he stay in a fixed position for too long. He also reports being SOB. He states that when he exerts he becomes very SOB and has no energy due to the persisting cough. He reports night sweats but denies any fevers. He started Xarelto last summer which is when the cough started to occur. He went through multiple different hospital visits and through different medications to try and alleviate his cough to no effect. He was most recently on Eliquis but has been put on Lovenox to prepare him for Coumadin. He denies any fever, rash, headaches, N/V/D, and muscle weakness. He states that he has abdominal pain due to a tumor with his liver cancer. He has no alleviating symptoms. He has previously been on Heparin, Lovenox, and Eliquis. - History of Current Complaint Chief Complaint: EDShortnessOfBreath Time Seen by Provider: 11/12/18 18:30 Hx Obtained From: Patient Onset/Duration: Gradual Onset, Lasting Weeks - cough has been present for about a year, Still Present, Worse Since Timing: Constant Current Severity: Moderate Aggravating Factors: Movement, Deep Breaths, Recumbent Position, Other Alleviating Factors: Nothing Associated Signs & Symptoms: Negative - fever, rash, headaches, N/V/D, and muscle weakness., Cough (Productive), Chest Pain w/Cough - Allergy/Home Medications Allergies/Adverse Reactions: Allergies Allergy/AdvReac Type Severity Reaction Status Date / Time erythromycin base Allergy Heartburn Verified 11/12/18 18:32 Penicillins Allergy Unknown Verified 11/12/18 18:32 Reaction Details vancomycin Allergy Rash And Verified 11/12/18 18:32 Itching PMH/Surg Hx/FS Hx/Imm Hx Previously Healthy: No Endocrine/Hematology History: Reports: Hx Anticoagulant Therapy - Before having vericose veins removed Denies: Hx Blood Disorders, Hx Blood Transfusions, Hx Bone Marrow Disease, Hx Diabetes, Hx Systemic Lupus Erythematosus, Hx Sickle Cell Disease, Hx Thyroid Disease, Hx Unexplained Bleeding, Other Endocrine/Hematological Disorders Cardiovascular History: Reports: Hx Deep Vein Thrombosis, Hx Hypertension, Hx Myocardial Infarction, Other Cardiovascular Problems/Disorders - VEIN SURG RIGHT LEG 8-10 YRS AGO, DYSLIPIDEMIA Respiratory History: Reports: Hx Pulmonary Embolism - saddle, Hx Sleep Apnea Denies: Hx Asthma, Hx Chronic Bronchitis, Hx Chronic Obstructive Pulmonary Disease (COPD), Hx Cystic Fibrosis, Hx Lung Cancer, Hx Pleural Effusion, Hx Pneumonia, Hx Pulmonary Edema, Hx Seasonal Allergies, Other Respiratory Problems /Disorders GI History: Reports: Other GI Disorders - Hx liver bleeding History: Reports: Hx Benign Prostatic Hyperplasia, Hx Kidney Stones Denies: Hx Acute Renal Failure, Hx Chronic Renal Failure, Hx Dialysis, Hx Kidney Infection, Hx Renal Disease, Other Problems/Disorders Musculoskeletal History: Reports: 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, Hx Congenital Bone Abnormalities - See back problems Denies: Hx Arthritis, Hx Bursitis, Hx Fibromyalgia, Hx Gout, Hx Orthopedic Injury, Hx Osteoporosis, Hx Scoliosis, Hx Tendonitis, Other Musculoskeletal History Sensory History: Reports: Hx Cataracts, 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, Hx Vision Problem - see above Denies: Hx Contacts or Glasses, Hx Eye Injury, Hx Eye Prosthesis, Hx Glaucoma , Hx Macular Degeneration, Hx Deafness, Hx Hearing Aid, Hx Hearing Problem, Other Sensory Impairments Opthamlomology History: Reports: Hx Cataracts, 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, Hx Vision Problem - see above Denies: Hx Contacts or Glasses, Hx Eye Injury, Hx Eye Prosthesis, Hx Glaucoma , Hx Macular Degeneration, Other Sensory Impairments - Surgical History Surgery Procedure, Year, and Place: 1967 hand injured by saw and re-implanted, rt leg "vein surgery", hepatic artery embolization Hx Anesthesia Reactions: No - Immunization History Date of Tetanus Vaccine: unk Date of Influenza Vaccine: fall 2016 Infectious Disease History: No Infectious Disease History: Denies: Hx Clostridium Difficile, Hx Hepatitis, Hx Human Immunodeficiency Virus (HIV), Hx of Known/Suspected MRSA, Hx Shingles, Hx Tuberculosis, Hx Known/ Suspected VRE, Hx Known/Suspected VRSA, History Other Infectious Disease, Traveled Outside the [place] in Last 30 Days - Family History Known Family History: Positive: Hypertension - Social History Occupation: Employed Full-time Lives: With Family - Alcohol Use: Rare Alcohol Amount: 1-2/YEAR Hx Substance Use: No Substance Use Type: Reports: None Substance Use Comment - Amount & Last Used: former drug user ( 20 years ago) Hx Tobacco Use: No Smoking Status (MU): Never Smoked Tobacco Have You Smoked in the Last Year: No Review of Systems Negative: Fever, Skin Diaphoresis Positive: Chest Pain Positive: Shortness Of Breath, Cough - productive Negative: Vomiting, Diarrhea, Nausea Negative: Rash Negative: Headache All Other Systems Reviewed And Are Negative: Yes Physical Exam - Summary Physical Exam Summary: Appearance: Well-appearing, Well-nourished, lying in bed comfortably Skin: Warm, dry, no obvious rash Eyes: sclera anicteric, no conjunctival pallor ENT: mucous membranes moist, pharynx appears normal Neck: Supple, nontender Respiratory: Clear to auscultation, no signs of respiratory distress Cardiovascular: Normal S1, S2. No murmurs. Normal distal pulses in tibial and radial bilaterally. Abdomen: Soft, nontender, normal active bowel sounds present, Abdomen is obese, marked hepatomegaly Musculoskeletal: Normal, Strength/ROM Intact Neurological: A&Ox3, awake and alert, mentation is normal, speech is fluent and appropriate Psychiatric: affect is normal, does not appear anxious or depressed Triage Information Reviewed: Yes Vital Signs On Initial Exam: Initial Vitals Temp Pulse Resp BP Pulse Ox 98.8 F 86 16 145/90 97 11/12/18 16:19 11/12/18 16:19 11/12/18 16:19 11/12/18 16:19 11/12/18 16:19 Vital Signs Reviewed: Yes Diagnostics - Vital Signs Vital Signs Temp Pulse Resp BP Pulse Ox 11/12/18 17:47 101.3 F 89 16 133/72 95 11/12/18 16:19 98.8 F 86 16 145/90 97 - Laboratory Result Diagrams: 11/12/18 19:10 11/12/18 19:10 Lab Statement: Any lab studies that have been ordered have been reviewed, and results considered in the medical decision making process. - Radiology CXR Radiology Interpretation Completed By: ED Physician Summary of Radiographic Findings: No acute diseases noted. a lobe is noted in his R mid-lungfield. Pending offical review - CT CT A/P CT Interpretation Completed By: Radiologist Summary of CT Findings: 1. No pulmonary emboli. 2. 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 3. Bosniak type II renal cyst. No followup indicated. ED Physician has reviewed this report. - EKG 1858 Cardiac Rate: NL - 90 BPM EKG Rhythm: Sinus Rhythm ST Segment: Normal Ectopy: None Summary of EKG Findings: NSR at 90 BPM, P waves, QRS complex, and T waves are within normal limits, T waves and intervals are normal, no ischemic changes. This is a normal EKG. Interpreted by Dr. Plaza, 189911/12/18. Re-Evaluation - Re-Evaluation First Eval Re-Evaluation Time: 21:33 Change: Improved Comment: Pt was informed about his labs and imaging reports and is agreeable to the discharge plan. Course/Dx - Course Course Of Treatment: Pt is a 73 y/o M presenting to [facility] with his and a CC of a persistent productive cough with chest pain that spreads across his anterior chest. He also states that the coughing has gotten worse since coming off of Eliquis. He states that position changes aggravate his cough and so does talking a lot. He also reports that when he stay in a fixed position for too long. He also reports being SOB. He states that when he exerts he becomes very SOB and has no energy due to the persisting cough. He reports night sweats but denies any fevers. He has a PMHx of colon cancer and changes in his medications with no effect on his cough. His PE found that his Abdomen is obese with marked hepatomegaly. His EKG at 1900 shows a NSR at 90 BPM, P waves , QRS complex, and T waves are within normal limits, T waves and intervals are normal, no ischemic changes. This is a normal EKG. His CXR found No acute diseases noted. a lobe is noted in his R mid-lungfield. The pt's CT A/P found: 1. No pulmonary emboli. 2. 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 3. Bosniak type II renal cyst. No followup indicated. He will be discharged home with a Dx of a cough due to the lack of abnormal findings during his ED course. - Diagnoses Provider Diagnoses: Cough Discharge - Sign-Out/Discharge Documenting (check all that apply): Patient Departure - discharge Patient Received Moderate/Deep Sedation with Procedure: No - Discharge Plan Condition: Stable Disposition: HOME Patient Education Materials: Chronic Cough (ED) Referrals: Lesa Do MD [Primary Care Provider] - Additional Instructions: Your tests tonight were negative for any recurrence of your pulmonary emboli, and we did not see any sign of inflammation in the lungs either. I would continue working with your doctors to try to find a solution to this coughing problem. - Billing Disposition and Condition Condition: STABLE Disposition: Home - Attestation Statements Document Initiated by Mp: Yes Documenting Scribe: Willem Escalera Provider For Whom Mp is Documenting (Include Credential): Adam Plaza MD Scribe Attestation: I, Willem Escalera, scribed for Adam Plaza MD on 11/14/18 at 0614. Scribe Documentation Reviewed: Yes Provider Attestation: The documentation as recorded by the Willem jeffries accurately reflects the service I personally performed and the decisions made by me, Adam Plaza MD Status of Scribe Document: Viewed
[2018-11-12 19:21] LABS: ABS Basophils 0.1 10^3/ul (0-0.2); ABS Lymphocytes 0.7 10^3/ul (1.0-4.8); ABS Monocytes 0.9 10^3/ul (0-0.8); ABS Neutrophils 7.3 10^3/ul (1.5-7.7); Eosinophil % 0.5 %; Hematocrit 47 % (42-52); Hemoglobin 16.2 g/dL (14.0-18.0); Lymphocyte % 7.6 %; Mean Corpuscular HGB Conc 34 g/dL (31-36); Mean Corpuscular Hemoglobin 30 pg (27-31); Mean Corpuscular Volume 89 fL (80-94); Mean Platelet Volume 8.2 fL (7.4-10.4); Platelet Count 175 10^3/uL (150-450); Red Blood Count 5.34 10^6 /uL (4.18-5.48); Red Cell Distribution Width 15 % (10-15)
[2018-11-12 19:39] LABS: Albumin 3.8 g/dL (3.2-5.2); Albumin/Globulin Ratio 0.9 (1-3); BUN/Creatinine Ratio 17.6 (8-20); Calcium 9.9 mg/dL (8.6-10.3); EGFR African American 99.4 (>60); EGFR Non-African American 82.1 (>60); Globulin 4.1 g/dL (2-4); Total Bilirubin 1.6 mg/dL (0.2-1.0); Total Protein 7.9 g/dL (6.4-8.9)
[2018-11-12 19:40] LABS: Troponin I 0.01 ng/mL (<0.04)
[2018-11-12] MEDS ORDERED: Iohexol 350* (CONTRAST) 500 ML MDV IV ONE (19:54)
[2018-11-12 21:49] VITALS: BP 134/78
== END 2018-11-12 21:54 | disposition home or self-care (01) ==
LOC: ED 16:10
DX: R05 Cough (principal); Z85.038 Personal history of other malignant neoplasm of large intestine; Z79.01 Long term (current) use of anticoagulants; Z86.718 Personal history of other venous thrombosis and embolism; I10 Essential (primary) hypertension; I25.2 Old myocardial infarction; Z86.711 Personal history of pulmonary embolism; N40.0 Benign prostatic hyperplasia without lower urinary tract symptoms; G47.30 Sleep apnea, unspecified; Z87.442 Personal history of urinary calculi; J44.9 Chronic obstructive pulmonary disease, unspecified; R91.8 Other nonspecific abnormal finding of lung field
CPT/HCPCS: 36415; 71046; 71275; 80053; 84484; 85025; 87040; 93005; 99283; Q9967

== ENCOUNTER 2018-11-27 17:45 | Inpatient (IN) | payer OTHER ==
[2018-11-27 18:21] LABS: ABS Basophils 0.2 10^3/ul (0-0.2); ABS Lymphocytes 0.6 10^3/ul (1.0-4.8); ABS Monocytes 0.9 10^3/ul (0-0.8); Eosinophil % 0.1 %; Hematocrit 40 % (42-52); Lymphocyte % 3.6 %; Mean Corpuscular HGB Conc 33 g/dL (31-36); Mean Corpuscular Hemoglobin 29 pg (27-31); Mean Corpuscular Volume 89 fL (80-94); Mean Platelet Volume 7.4 fL (7.4-10.4); Nucleated Red Blood Cells % 0.1; Platelet Count 522 10^3/uL (150-450); Red Blood Count 4.47 10^6 /uL (4.18-5.48); Red Cell Distribution Width 15 % (10-15); White Blood Count 16.6 10^3/uL (3.5-10.8)
[2018-11-27 18:29] LABS: INR 1.78 (0.82-1.09)
[2018-11-27] MEDS ORDERED: NS 0.9% 1000 ML** 1,000 ML IV ONE (18:36)
[2018-11-27 18:39] LABS: Albumin 3.3 g/dL (3.2-5.2); Albumin/Globulin Ratio 0.8 (1-3); BUN/Creatinine Ratio 19.9 (8-20); Calcium 9.5 mg/dL (8.6-10.3); EGFR African American 57.6 (>60); EGFR Non-African American 47.6 (>60); Globulin 4.1 g/dL (2-4); Potassium 4.5 mmol/L (3.5-5.0); Total Bilirubin 1.5 mg/dL (0.2-1.0); Total Protein 7.4 g/dL (6.4-8.9)
[2018-11-27 18:41] LABS: Troponin I 0.02 ng/mL (<0.04)
[2018-11-27] MEDS ORDERED: fentaNYL* 50 MCG/ML 2 ML VIAL (100 MCG VIAL) IV SLOW PU ONE ×2 (18:45→22:20)
[2018-11-27] MEDS ORDERED: Cefepime 2 GM in Dextrose(*) 2 GM/50 ML BAG IV ONE (18:45)
[2018-11-27] MEDS ORDERED: Iodixanol* (CONTRAST) 320 MG/ML 100 ML SDV IV ONE (18:57)
--- NOTE | 2018-11-27 19:01 | ED ---
Abdominal Pain/Male - HPI Summary HPI Summary: Patient is a 73 y old M presenting to [facility] accompanied by with chief complaint of RUQ and LUQ pain since this morning (11/27/18). Symptoms aggravated by laying back. Symptoms alleviated by nothing. Patients reports liver cancer and 1st infusion last month at [facility] when they visited for severe coughing. Patients describes left side abdomen pain with radiation up through chest even though pain was located in liver and across the diaphragm for 1 year. Patient rates pain at 10/10 in severity. Patients reports that patient could not get into bed or stand up prompting his arrival to the ED. Patient reports vomiting when preparing for visit to ED. Patient reports painful breathing and back pain. Patient reports only case of previous internal bleeding was artery burst during liver cancer. Patients reports recent weight loss since beginning of October 2018, and fatigue even before onset of pain. Patient reports diaphoresis during sleep. Pt denies any melena, fever, chills, erythema of eyes, sore throat, SOB, cough, dysuria, hematuria, myalgia, edema, rash, or dizziness. Patient reports an infusion surgery at [facility] 11/17/18 [address] home the next day patient took an oxycodone for pain which was the last time the patient took oxycodone until today. Patients reports yesterday patient didnt eat but ate at 1400 today and drank some water and grape juice throughout today, 11/27/18. Patients reports he took oxycodone at 1000 and 1600 today and usually takes up to 5 mg 4 times a day when he does. Patient reports that [facility] is concerned of Durvalumab causing inflammation in colon or diaphragm. They report that Dr. Maria Eugenia Dumont sees the patient at [facility]. - History of Current Complaint Chief Complaint: EDChestPainROMI Stated Complaint: CHEST PAIN PER PT Time Seen by Provider: 11/27/18 18:34 Hx Obtained From: Patient, Family/Cereal Supervisor Onset/Duration: Gradual Onset, Lasting Hours, Still Present Timing: Lasting Hours Pain Intensity: 10 Pain Scale Used: 0-10 Numeric Location: Discrete At: RLQ, Discrete At: LUQ, Epigastric Radiates: Yes Radiates to: Chest Character: Sharp Aggravating Factor(s): Nothing Alleviating Factor(s): Nothing Associated Signs And Symptoms: Positive: Diaphoresis, Chest Pain, Decreased Appetite, Nausea, Vomiting, Other - POSITIVE: fatigue; NEGATIVE: melena, chills , erythema of eyes, sore throat, SOB, myalgia, edema, rash, or dizziness. Negative: Fever, Cough, Urinary Symptoms - Allergies/Home Medications Allergies/Adverse Reactions: Allergies Allergy/AdvReac Type Severity Reaction Status Date / Time erythromycin base Allergy Heartburn Verified 11/12/18 18:32 Penicillins Allergy Unknown Verified 11/12/18 18:32 Reaction Details vancomycin Allergy Rash And Verified 11/12/18 18:32 Itching Home Medications: Home Medications Apixaban* [Eliquis*] 5 mg PO BID 11/27/18 [History Confirmed 11/27/18] Aspirin EC TAB* [Ecotrin EC Low Dose 81 MG*] 81 mg PO DAILY 11/27/18 [History Confirmed 11/27/18] Valsartan/HCTZ 160/25(NF) [Diovan Hct 160/25(NF)] 1 tab PO DAILY 11/27/18 [ History Confirmed 11/27/18] oxyCODONE TAB* [Roxycodone TAB 5 mg*] 5 mg PO Q6H PRN 11/27/18 [History Confirmed 11/27/18] PMH/Surg Hx/FS Hx/Imm Hx Endocrine/Hematology History: Reports: Hx Anticoagulant Therapy - Before having vericose veins removed Denies: Hx Blood Disorders, Hx Blood Transfusions, Hx Bone Marrow Disease, Hx Diabetes, Hx Systemic Lupus Erythematosus, Hx Sickle Cell Disease, Hx Thyroid Disease, Hx Unexplained Bleeding, Other Endocrine/Hematological Disorders Cardiovascular History: Reports: Hx Deep Vein Thrombosis, Hx Hypertension, Hx Myocardial Infarction, Other Cardiovascular Problems/Disorders - VEIN SURG RIGHT LEG 8-10 YRS AGO, DYSLIPIDEMIA Respiratory History: Reports: Hx Pulmonary Embolism - saddle, Hx Sleep Apnea Denies: Hx Asthma, Hx Chronic Bronchitis, Hx Chronic Obstructive Pulmonary Disease (COPD), Hx Cystic Fibrosis, Hx Lung Cancer, Hx Pleural Effusion, Hx Pneumonia, Hx Pulmonary Edema, Hx Seasonal Allergies, Other Respiratory Problems /Disorders GI History: Reports: Other GI Disorders - Hx liver bleeding History: Reports: Hx Benign Prostatic Hyperplasia, Hx Kidney Stones Denies: Hx Acute Renal Failure, Hx Chronic Renal Failure, Hx Dialysis, Hx Kidney Infection, Hx Renal Disease, Other Problems/Disorders Musculoskeletal History: Reports: 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, Hx Congenital Bone Abnormalities - See back problems Denies: Hx Arthritis, Hx Bursitis, Hx Fibromyalgia, Hx Gout, Hx Orthopedic Injury, Hx Osteoporosis, Hx Scoliosis, Hx Tendonitis, Other Musculoskeletal History Sensory History: Reports: Hx Cataracts, 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, Hx Vision Problem - see above Denies: Hx Contacts or Glasses, Hx Eye Injury, Hx Eye Prosthesis, Hx Glaucoma , Hx Macular Degeneration, Hx Deafness, Hx Hearing Aid, Hx Hearing Problem, Other Sensory Impairments Opthamlomology History: Reports: Hx Cataracts, 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, Hx Vision Problem - see above Denies: Hx Contacts or Glasses, Hx Eye Injury, Hx Eye Prosthesis, Hx Glaucoma , Hx Macular Degeneration, Other Sensory Impairments - Surgical History Surgery Procedure, Year, and Place: 1967 hand injured by saw and re-implanted, rt leg "vein surgery", hepatic artery embolization Hx Anesthesia Reactions: No - Immunization History Date of Tetanus Vaccine: unk Date of Influenza Vaccine: fall 2016 Infectious Disease History: No Infectious Disease History: Denies: Hx Clostridium Difficile, Hx Hepatitis, Hx Human Immunodeficiency Virus (HIV), Hx of Known/Suspected MRSA, Hx Shingles, Hx Tuberculosis, Hx Known/ Suspected VRE, Hx Known/Suspected VRSA, History Other Infectious Disease, Traveled Outside the [place] in Last 30 Days - Family History Known Family History: Positive: Hypertension - Social History Alcohol Use: Rare Alcohol Amount: 1-2/YEAR Hx Substance Use: No Substance Use Type: Reports: None Substance Use Comment - Amount & Last Used: former drug user ( 20 years ago) Hx Tobacco Use: No Smoking Status (MU): Never Smoked Tobacco Have You Smoked in the Last Year: No Review of Systems Positive: Fatigue, Skin Diaphoresis. Negative: Fever, Chills Negative: Erythema Negative: Sore Throat Positive: Chest Pain Negative: Shortness Of Breath, Cough Positive: Abdominal Pain - upper abd , Vomiting, Nausea, Other - POSITIVE: decreased appetite; NEGATIVE: melena Negative: dysuria, hematuria Negative: Myalgia - no back pain, Edema Negative: Rash Neurological: Other - (-): dizziness All Other Systems Reviewed And Are Negative: Yes Physical Exam - Summary Physical Exam Summary: Constitutional: Well-developed, Well-nourished, Alert. (-) Distressed Skin: Warm, Dry HENT: Normocephalic; Atraumatic Eyes: Conjunctiva normal Neck: Musculoskeletal ROM normal neck. (-) JVD, (-) Stridor, (-) Tracheal deviation Cardio: Rhythm regular, rate normal, Heart sounds normal; Intact distal pulses; The pedal pulses are 2+ and symmetric. Radial pulses are 2+ and symmetric. (-) Murmur Pulmonary/Chest wall: Effort normal. (-) Respiratory distress, (-) Wheezes, (-) Rales Abd: Exquisite RUQ and LUQ tenderness Musculoskeletal: (-) Edema Lymph: (-) Cervical adenopathy Neuro: Alert, Oriented x3 Psych: Uncomfortable and Anxious Triage Information Reviewed: Yes Vital Signs On Initial Exam: Initial Vitals Temp Pulse Resp BP Pulse Ox 98.5 F 110 24 96/57 95 11/27/18 17:54 11/27/18 17:54 11/27/18 17:54 11/27/18 17:54 11/27/18 17:54 Vital Signs Reviewed: Yes Diagnostics - Vital Signs Vital Signs Temp Pulse Resp BP Pulse Ox 11/27/18 18:27 108 33 77/56 98 11/27/18 18:22 108 48 77/51 98 11/27/18 18:18 106 97 11/27/18 17:54 98.5 F 110 24 96/57 95 - Laboratory Lab Results: Lab Results 11/27/18 11/27/18 11/27/18 Range/Units 18:12 18:12 18:15 WBC 16.6 H (3.5-10.8) 10^3/uL RBC 4.47 (4.18-5.48) 10^6 /uL Hgb 13.0 L (14.0-18.0) g/dL Hct 40 L (42-52) % MCV 89 (80-94) fL MCH 29 (27-31) pg MCHC 33 (31-36) g/dL RDW 15 (10-15) % Plt Count 522 H D (150-450) 10^3/uL MPV 7.4 (7.4-10.4) fL Neut % (Auto) 90.1 % Lymph % (Auto) 3.6 % Stafford % (Auto) 5.3 % Eos % (Auto) 0.1 % Baso % (Auto) 0.9 % Absolute Neuts (auto) 15.0 H (1.5-7.7) 10^3/ul Absolute Lymphs (auto) 0.6 L (1.0-4.8) 10^3/ul Absolute Monos (auto) 0.9 H (0-0.8) 10^3/ul Absolute Eos (auto) 0.0 (0-0.6) 10^3/ul Absolute Basos (auto) 0.2 (0-0.2) 10^3/ul Absolute Nucleated RBC 0.0 10^3/ul Nucleated RBC % 0.1 INR (Anticoag Therapy) 1.78 H (0.82-1.09) Sodium 134 L (135-145) mmol/L Potassium 4.5 (3.5-5.0) mmol/L Chloride 101 (101-111) mmol/L Carbon Dioxide 25 (22-32) mmol/L Anion Gap 8 (2-11) mmol/L BUN 29 H (6-24) mg/dL Creatinine 1.46 H (0.67-1.17) mg/dL Est GFR ( Amer) 57.6 (>60) Est GFR (Non-Af Amer) 47.6 (>60) BUN/Creatinine Ratio 19.9 (8-20) Glucose 173 H (70-100) mg/dL Calcium 9.5 (8.6-10.3) mg/dL Total Bilirubin 1.50 H (0.2-1.0) mg/dL AST 76 H (13-39) U/L ALT 111 H (7-52) U/L Alkaline Phosphatase 403 H (34-104) U/L Troponin I 0.02 (<0.04) ng/mL Total Protein 7.4 (6.4-8.9) g/dL Albumin 3.3 (3.2-5.2) g/dL Globulin 4.1 H (2-4) g/dL Albumin/Globulin Ratio 0.8 L (1-3) Result Diagrams: 11/27/18 18:12 11/27/18 18:12 Lab Statement: Any lab studies that have been ordered have been reviewed, and results considered in the medical decision making process. - Radiology Chest X-Ray Radiology Interpretation Completed By: ED Physician Summary of Radiographic Findings: No acute distress. Pending official report. - EKG 1749 Cardiac Rate: Tachycardia - 100 BPM EKG Rhythm: Sinus Tachycardia Summary of EKG Findings: 100 bpm, sinus tachycardia, no STEMI - Additional Comments Diagnostic Additional Comments: Per radiologist, Chest/Abdomen/Pelvis CTA reveals: 1. No pulmonary emboli. 2. No aortic dissection, aneurysm, or rupture. 3. Stable previously seen right upper lobe metastatic nodules. ED physician has reviewed this report. Re-Evaluation - Re-Evaluation First Eval Re-Evaluation Time: 21:30 Change: Improved Comment: Patient's symptoms have improved. Second Eval Re-Evaluation Time: 22:30 Comment: I spoke with patient concerning admission. Abdominal Pain Male Course/Dx - Course Course Of Treatment: Patient is a 73 y old M presenting to [facility] accompanied by with chief complaint of RUQ and LUQ pain since this morning (11/27/18). Symptoms aggravated by laying back. Patients describes left side abdomen pain with radiation up through chest even though pain was located in liver and across the diaphragm for 1 year. Patient rates pain at 10/10 in severity. Patient reports vomiting when preparing for visit to ED, painful breaths, and back pain. Patient reports diaphoresis during sleep. Pt denies any melena, fever , chills, erythema of eyes, sore throat, SOB, cough, nausea, dysuria, hematuria , myalgia, edema, rash, or dizziness. Physical exam reveals exquisite RUQ and LUQ tenderness, uncomfortable and anxious. Tests reveal no abnormalities except for WBC 16.6, Hgb 13.0, Hct 40, Plt Count 522, Absolute Neuts 15.0, Absolute Lymphs 0.6, Absolute Monos 0.9, INR 1.78, Sodium 134, BUN 29, Creatinine 1.46, Glucose 173, Total Bilirubin 1.50, AST 76, ALT 111, Alkaline Phosphatase 403, Globulin 4.1, and Albumin/Globulin Ratio 0.8. Patient has been given cefapime Hcl 100 mls/hr, fentanyl citrate 50 mcg, iodixanol 100 ml, and saline in the ED. Chest/Abdomen/Pelvis CTA reveals no pulmonary emboli, no aortic dissection, aneurysm, or rupture. 3. Stable previously seen right upper lobe metastatic nodules. Chest X-Ray reveals no acute distress. EKG reveals 100 bpm, sinus tachycardia, and no STEMI. At 2146, I spoke with the on-call service at [facility]. At 2199, I spoke with Dr. Martin, from [facility], who will speak with Dr. Kim to update her on the patient's current situation. Bilirubin is stable as compared to labs 3 days ago. There is no evidence for messenteric ischemia. His lactic acid is normal. The PE on the left is slightly larger. Physician recommended ICU and careful volume replacement. He is accepted for admission at [address] Farrell. Patient agrees with this plan. - Diagnoses Provider Diagnoses: Sepsis, Pleural effusion, left - Provider Notifications Discussed Care Of Patient With: [facility] Time Discussed With Above Provider: 21:47 Instructed by Provider To: Other - I spoke with the on-call service at [facility]. At 2199, I spoke with Dr. Martin, from [facility], who will speak with Dr. Kim concerning the patient's case. I spoke with Dr. Farrell at 2229; he accepts patient for admisison. Reason For Transfer: Other: - 2208: [facility]: Dr. Martin, Dr. Kim's fellow, going to update her on pt situation. - Critical Care Time Critical Care Time: 30-74 min - 60 minutes Discharge - Sign-Out/Discharge Documenting (check all that apply): Patient Departure - admit Patient Received Moderate/Deep Sedation with Procedure: No - Discharge Plan Disposition: ADMITTED TO [facility] Referrals: Lesa Do MD [Primary Care Provider] - - Billing Disposition and Condition Disposition: Admitted to [facility] - Attestation Statements Document Initiated by Scribe: Yes Documenting Scribe: Tiffanie Baez Provider For Whom Scribe is Documenting (Include Credential): Robert Avitia MD Scribe Attestation: Tiffanie Catalan, scribed for Robert Avitia MD on 11/27/18 at 2316. Status of Scribe Document: Ready
[2018-11-27] MEDS ORDERED: NS 0.9% 1000 ML** 2,000 ML IV ONE (22:18)
[2018-11-27 22:45] LABS: Urine Appearance Cloudy; Urine Bacteria Absent (Absent); Urine Bilirubin Negative (Negative); Urine Blood 2+ (Negative); Urine Color Amber; Urine Glucose Negative (Negative); Urine Ketones Negative (Negative); Urine Nitrite Negative (Negative); Urine Protein 2+(100 mg/dL) (Negative); Urine Red Blood Cell 3+(>10/hpf) (Absent); Urine Specific Gravity > 1.060 (1.010-1.030); Urine Squamous Epithelial Cell Present (Absent); Urine Urobilinogen Negative (Negative); Urine White Blood Cell 2+(11-20/hpf) (Absent)
[2018-11-28] MEDS ORDERED: fentaNYL* 50 MCG/ML 2 ML VIAL (100 MCG VIAL) IV SLOW PU PRN (01:46)
[2018-11-28] MEDS ORDERED: Acetaminophen TAB* 325 MG PO PRN (01:46)
[2018-11-28] MEDS: Cefepime 2 GM in Dextrose(*) 2 GM/50 ML BAG IV SCH ×2 (05:43→18:40)
[2018-11-28 08:45] LABS: ABS Eosinophils 0.1 10^3/ul (0-0.6); ABS Lymphocytes 0.8 10^3/ul (1.0-4.8); ABS Monocytes 0.9 10^3/ul (0-0.8); ABS Neutrophils 9.4 10^3/ul (1.5-7.7); Eosinophil % 0.5 %; Hematocrit 32 % (42-52); Hemoglobin 10.8 g/dL (14.0-18.0); Lymphocyte % 6.7 %; Mean Corpuscular HGB Conc 34 g/dL (31-36); Mean Corpuscular Hemoglobin 30 pg (27-31); Mean Corpuscular Volume 88 fL (80-94); Mean Platelet Volume 7.5 fL (7.4-10.4); Platelet Count 322 10^3/uL (150-450); Red Blood Count 3.64 10^6 /uL (4.18-5.48); Red Cell Distribution Width 14 % (10-15); White Blood Count 11.1 10^3/uL (3.5-10.8)
[2018-11-28 09:10] LABS: Anion Gap 7 mmol/L (2-11); BUN/Creatinine Ratio 27.4 (8-20); Blood Urea Nitrogen 37 mg/dL (6-24); CO2 Carbon Dioxide 22 mmol/L (22-32); Calcium 9.2 mg/dL (8.6-10.3); Chloride 106 mmol/L (101-111); EGFR Non-African American 52.1 (>60); Glucose 105 mg/dL (70-100); Potassium 4.4 mmol/L (3.5-5.0); Sodium 135 mmol/L (135-145)
[2018-11-28] MEDS: Aspirin EC TAB* 81 MG TAB.EC PO SCH (09:43)
[2018-11-28] MEDS: oxyCODONE TAB* 5 MG TAB PO PRN ×2 (09:44→19:45)
--- NOTE | 2018-11-28 09:45 | HP ---
CC: Dr. Victoria; Dr. Quiroga * HISTORY AND PHYSICAL: DATE OF ADMISSION: 11/28/18 CHIEF COMPLAINT: Left upper quadrant pain. HISTORY OF PRESENT ILLNESS: Mr. Stoen is a 73-year-old man with metastatic hepatocellular carcinoma who is actively on treatment with Durvalumab, an immunotherapy received through a clinical trial at [facility]. His last infusion was 4 days ago down at [facility] in [facility]. This is the second infusion, the first one being back in October. The patient returned to [place] on Saturday and had some pain in the epigastric area on his way home which he treated with oxycodone. a.m. the morning prior to admission he had severe left- sided chest pain and rated the pain as 10/10. The pain is worse with deep breath and worse lying down. It is not related to food. He had eaten very little in the last 3 to 4 days. This patient denies any fevers or neck pain. The patient has had 1 admission this year in June where he presented with right upper quadrant pain and fever and had positive blood cultures for Staph epidermidis treated with antibiotics and discharged. The patient is on Eliquis due to a DVT and PE. He has not taken any Eliquis in the 24 hours prior to this admission, missing the morning and evening dose. PAST MEDICAL HISTORY: Includes hepatocellular carcinoma diagnosed in June 2017 which presented with hepatic artery rupture or hemorrhage of the tumor. He was transferred to [facility] where he had embolization to stabilize bleeding. The cancer has been treated further by greater frequency embolization and chemoembolization and more recently at [facility]. He also had aspiration pneumonia, history of saddle pulmonary emboli, and coronary artery disease with history of myocardial infarction in the past. He has hypertension , history of kidney stones, and BPH. MEDICATIONS: On admission are: 1. Eliquis 5 mg p.o. b.i.d. 2. Aspirin 81 mg p.o. daily. 3. Oxycodone 5 mg p.o. q.6 hours p.r.n. pain. 4. Valsartan with hydrochlorothiazide 160/25 one tab p.o. q.a.m. ALLERGIES: LOVENOX, PENICILLIN, VANCOMYCIN, ERYTHROMYCIN. FAMILY HISTORY: Notable for brother with thyroid cancer, mother with breast cancer, second brother with prostate cancer, father of heart failure. 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 He is , he has 3 children. He never smoked. No alcohol or drug use. REVIEW OF SYSTEMS: The patient has had night sweats and he has had a 10-pound weight loss in the last month. The patient reports no peripheral edema, but has had some chest pain as above on the left side. The patient denies any hemoptysis or cough. He feels a little short of breath because he cannot take a deep breath. Remainder of the 14-point review of systems is negative other than mentioned in the HPI and physical examination. PHYSICAL EXAMINATION GENERAL: He is an alert man, sitting up, in mild distress. VITAL SIGNS: Temperature is 36.9, pulse is 95 to 101, respirations 36, blood pressure is 89/59, O2 sat is 98% on room air. HEENT: Head is normocephalic and atraumatic. Sclerae anicteric. Pupils are equal, round, and reactive to light and accommodation. Oropharynx is moist. No lesions. NECK: No JVD, no carotid bruits, no thyromegaly. LUNGS: Diminished at the left base. No rales or wheezes. HEART: Tachycardic, regular. No murmurs. ABDOMEN: Left upper quadrant is exquisitely tender, but soft. No rebound. Positive bowel sounds. No masses. EXTREMITIES: No peripheral edema. Dorsal pedis pulses are absent bilaterally. NEUROLOGIC: Cranial nerves II through XII are intact. Motor strength is 5/5 in the upper and lower extremities. Deep tendon reflexes are symmetric. DIAGNOSTIC STUDIES/LABORATORY DATA: Sodium 134, potassium 4.5, chloride 101, bicarb 25, BUN 29, creatinine 1.46, glucose 173, AST 76, ALT 111, bilirubin 1.5 , lactase 27, INR 1.78. Troponin was 0.02 on admission, repeated after 3 hours again 0.02, and repeated again at 0.01. White count is 16.6, hemoglobin 13.0, hematocrit 40%, platelets are 522,000. Urinalysis shows specific gravity greater than 1.060, 2+ protein, 2+ blood. EKG shows sinus tachycardia. Chest x -ray shows a left-sided pleural effusion. CT of the chest, abdomen, and pelvis shows a moderate size left- sided pleural effusion, a right upper lobe nodule, and hepatic neoplasms, as well as cholelithiasis. ASSESSMENT AND PLAN: A 73-year-old man presenting with a left-sided pleural effusion and severe pain in the same area. Differential would include a pneumonia with a parapneumonic effusion versus malignant effusion. It is also possible that he has chylothorax, less likely heart failure. The patient will need to be admitted to the hospital and have thoracentesis to just sort out this differential. I plan to discuss the case with Oncology in the morning and ask them to take over the management of this complex case. The patient also has suspected infection and systemic inflammatory response syndrome with hypotension, tachycardia, tachypnea, and an elevated white count. He will be started on cefepime and vanco. He has already completed his 30 mL/ kg infusion of normal saline. At this point, he finds that it seems adequate and he does not require ICU admission. Code status is full. We will hold Eliquis with the eye towards having a thoracentesis in the next 12 to 24 hours. We will start sequential compression devices to prevent deep venous thrombosis. 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 His blood pressure medicines will be held because of the relative hypotension. The case was discussed with the patient and his , and I will discuss the case with Oncology in the morning. [id number]/CPS #: [id number] MTDD
--- NOTE | 2018-11-28 11:14 | PN ---
Progress Note - Progress Note Date of Service: 11/28/18 SOAP: Subjective: []Pain developed yesterday, sudden, 02/26, all day and nothing made better. No fever or chills, diarrhea, nausea or vomiting. Has been SOB because of pleurisy pain with deep breath. [place] [facility] [place] told to com to [place]. Pain is epigastric to right abdominal, similar to pain when had bleeding in hepatic artery. Urination has been fine. Symptoms slightly improved today. Acetaminophen (Tylenol Tab*) 650 mg PO Q4H PRN PRN Reason: PAIN - MILD Aspirin (Aspirin Ec Tab*) 81 mg PO DAILY [facility] Last Admin: 11/28/18 09:43 Dose: 81 mg Fentanyl Citrate (Fentanyl*) 50 mcg IV SLOW PU Q3H PRN PRN Reason: PAIN - SEVERE Last Admin: 11/28/18 02:41 Dose: 50 mcg Cefepime HCl (Maxipime 2 Gm In Dextrose Duplex (*)) 2 gm in 50 mls @ 100 mls/ hr IV Q12H [facility] Last Admin: 11/28/18 05:43 Dose: 100 mls/hr Oxycodone HCl (Roxycodone Tab*) 5 mg PO Q6H PRN PRN Reason: PAIN - MODERATE Last Admin: 11/28/18 09:44 Dose: 5 mg PMHx: HCC - on durvalumab since 10/27/18 PE - On Lovenox HTN Objective: [] Vital Signs Temp Pulse Resp BP Pulse Ox 97.7 F 83 19 116/60 98 11/28/18 07:15 11/28/18 07:15 11/28/18 09:44 11/28/18 07:15 11/28/18 07:15 HEENT: OM dry, pale CTA, SOB at rest RRR S1S2 Obese, epigastric pain and RUQ pain to palpation, focal and with rebound. +BS. Ext warm and god pulses Neuro - AAOx 3 CT scan reviewed. No acute bleeding, disease stable overall, slight progression of lung lesions, tr effusion. no colitis. Hgb 10.8, Cr 1.34 Assessment: []73 yo on immunotherpay with acute abdominal pain, new anemia and increased Cr. Suspect acute immunologic SE over cancer progression. Ddx; acute gastritis , enteritis, nephritis, could have ulcer and GIB. Plan: []1. Will re-check CBC at 1500 and send Iron studies, B12, Retic count. 2. Stool for occult blood and leukocytes 3. NS at 150 cc per hr. 4. Given SOB check Echo 5. IV PPI 6. Hold anticoagulation, compression stockings 7. UA and Micro.
[2018-11-28] MEDS ORDERED: Pantoprazole IV* 40 MG IV ONE (12:00)
[2018-11-28 13:59] LABS: % Iron Saturation 27 % (15-55); Iron 53 ug/dL (50-212); Total Iron Binding Capacity 193 mcg/dL (250-450); Transferrin 138 mg/dL (203-362)
[2018-11-28 14:19] LABS: Ferritin 1040.5 ng/mL (24-336)
[2018-11-28 14:51] LABS: Corrected Retic Count 1.2 % (0.5-1.5); Hematocrit for Retic CNT 32 % (42-52); Immature Retic Fraction 0.45
--- NOTE | 2018-11-28 19:27 | ECHO ---
*[facility]* [place] [address] Fax #: [phone] Transthoracic Echocardiogram Patient: Adam Stone : 1945 Study Date: 11/28/2018 Age: 73 Gender: M HR: 69 bpm Height: 69 in /175.3 cm BSA: 2.16 m^2 Weight: 220.5 lb /100.2 kg BMI: 32.6 kg/m^2 *International Sourcing Manager: * Makenzie Hargrove [facility] *Referring Physician: * Fahad Moreno *Reading Physician: * Nikhil Palacios MD Indications: Chest Pain, unspecified. History: Pulmonary embolism, Hepatocellular carcinoma. Risk factors: Hypertension. Conclusions Summary: 1. Left ventricle: The cavity size is below normal. Wall thickness is mildly increased. Systolic function is normal. The estimated ejection fraction is 60-65%. Wall motion is normal; there are no regional wall motion abnormalities. Doppler parameters are consistent with abnormal left ventricular relaxation (grade 1 diastolic dysfunction). 2. Right ventricle: The cavity size is mildly to moderately dilated. Systolic function is normal. 3. Right atrium: The atrium is mildly dilated. 4. Functionally benign heart valves. 5. Ascending aorta: The ascending aorta is mildly dilated. 6. Since the prior echocardiogram completed 09/29/18, pertient change is prior normal left ventricular cavity size reported. Study data: Transthoracic echocardiogram. Procedure: Transthoracic echocardiography was performed. Image quality was fair. Complete 2D, spectral Doppler, and color flow Doppler. Location: Bedside. Patient status: Inpatient. Patient room number: 444-2. Rhythm: Normal sinus rhythm with PVC's. Findings Left ventricle: The cavity size is below normal. Wall thickness is mildly increased. Systolic function is normal. The estimated ejection fraction is 60-65%. Wall motion is normal; there are no regional wall motion abnormalities. Doppler parameters are consistent with abnormal left ventricular relaxation (grade 1 diastolic dysfunction). Right ventricle: The cavity size is mildly to moderately dilated. Systolic function is normal. Systolic pressure cannot be accurately determined. Left atrium: The atrium is normal in size. Right atrium: The atrium is mildly dilated. Mitral valve: The leaflets are mildly thickened. There is trace regurgitation. Aortic valve: The annulus is mildly calcified. The valve is trileaflet. The leaflets are mildly thickened. There is no evidence of stenosis. There is no significant regurgitation. Tricuspid valve: The leaflets are normal thickness. There is no evidence of stenosis. There is physiologic regurgitation. Pulmonic valve: The leaflets are normal thickness. There is no evidence of stenosis. There is trace regurgitation. Aorta: Aortic root: The aortic root is appears normal. Ascending aorta: The ascending aorta is mildly dilated. Aortic arch: The aortic arch is appears normal. Pericardium: A prominent pericardial fat pad is present. There is no significant pericardial effusion. Pulmonary arteries: Not well visualized. Systolic pressure can not be accurately estimated. Systemic veins: Inferior vena cava: The vessel is normal in size. The respirophasic diameter changes are in the normal range (>= 50%). Measurements Left ventricle Value Ref Right atrium continued Value Ref COOPER, LAX (L) 2.8 cm 4.2 - 5.8 SI dim, ES, A4C 5.2 cm 3.4 - 5.3 ESD, LAX (L) 1.8 cm 2.5 - 4.0 Estimated RAP 3 mm Hg --------- FS, LAX 34 % 25 - 43 PW, ED, LAX (H) 1.1 cm 0.6 - 1.0 Aortic valve Value Ref FS 34 % 25 - 43 Alana diam, ED 1.7 cm --------- PW, ED (H) 1.1 cm 0.6 - 1.0 Peak v, S 1.6 m/sec --------- E', lat alana, TDI 10.4 cm/sec >=10.0 VTI, S 25.5 cm -- ------- E/e', lat alana, 5 Mean grad, S 4.0 mm Hg ----- ---- TDI Peak grad, S 10.0 mm Hg --------- E', med alana, TDI (L) 5.2 cm/sec >=7.0 LVOT/AV, VTI ratio 0.71 -- ------- E/e', med alana, 11 TDI Mitral valve Value Ref E', avg, TDI 7.8 cm/sec Peak E 0.56 m/sec ----- ---- E/e', avg, TDI 7 <=14 Peak A 0.82 m/sec -- ------- Decel time 317 ms --------- LVOT Value Ref Peak E/A ratio 0.7 --------- Peak agustin, S 1.05 m/sec VTI, S 18.0 cm Pulmonic valve Value Ref Mean grad, S 2 mm Hg Peak v, S 1.14 m/sec --------- Peak grad, S 5.0 mm Hg --------- Ventricular septum Value Ref IVS, ED (H) 1.4 cm 0.6 - 1.0 Aortic root Value Ref Root diam 3.0 cm <4.3 Right ventricle Value Ref COOPER, LAX 4.3 cm Ascending aorta Value Ref COOPER minor ax, (H) 5.5 cm 1.9 - 3.5 AAo AP diam, S 3.5 cm --------- A4C mid Aortic arch Value Ref Left atrium Value Ref Arch diam 2.6 cm --------- AP dim, ES (H) 4.10 cm 3.00 - 4.00 Decending aorta Value Ref ML dim, A4C 4.7 cm Sherrie peak agustin 0.89 m/sec --------- SI dim, A4C 6.0 cm Vol/bsa, ES, 1-p 25 ml/m^2 12 - 37 Inferior vena cava Value Ref A4C Diam 1.0 cm --------- Vol/bsa, ES, A/L 34 ml/m^2 16 - 34 Right atrium Value Ref SI dim, ES (H) 5.7 cm 3.4 - 5.3 ML dim, ES, A4C 4.4 cm 2.6 - 4.4 Legend: (L) and (H) breonna values outside specified reference range. Prepared and electronically signed by Nikhil Palacios MD 11/28/2018 19:27
[2018-11-29] MEDS: NS 0.9% 1000 ML** 1,000 ML IV SCH ×3 (01:15→17:53)
[2018-11-29] MEDS: Cefepime 2 GM in Dextrose(*) 2 GM/50 ML BAG IV SCH ×2 (05:24→17:53)
[2018-11-29] MEDS: oxyCODONE TAB* 5 MG TAB PO PRN ×2 (05:29→21:39)
[2018-11-29 06:13] LABS: Hematocrit 28 % (42-52); Hemoglobin 9.6 g/dL (14.0-18.0); Mean Corpuscular HGB Conc 35 g/dL (31-36); Mean Corpuscular Hemoglobin 31 pg (27-31); Mean Corpuscular Volume 88 fL (80-94); Mean Platelet Volume 7.2 fL (7.4-10.4); Platelet Count 246 10^3/uL (150-450); Red Blood Count 3.13 10^6 /uL (4.18-5.48); Red Cell Distribution Width 15 % (10-15); White Blood Count 8.7 10^3/uL (3.5-10.8)
[2018-11-29 06:32] LABS: Albumin 2.6 g/dL (3.2-5.2); Albumin/Globulin Ratio 0.8 (1-3); Calcium 8.7 mg/dL (8.6-10.3); EGFR African American 99.4 (>60); EGFR Non-African American 82.1 (>60); Globulin 3.2 g/dL (2-4); Magnesium 1.8 mg/dL (1.9-2.7); Potassium 4.3 mmol/L (3.5-5.0); Total Bilirubin 1.2 mg/dL (0.2-1.0); Total Protein 5.8 g/dL (6.4-8.9)
[2018-11-29 07:28] LABS: ABS Basophils 0.1 10^3/ul (0-0.2); ABS Eosinophils 0.2 10^3/ul (0-0.6); ABS Lymphocytes 0.5 10^3/ul (1.0-4.8); ABS Monocytes 0.6 10^3/ul (0-0.8); ABS Neutrophils 7.3 10^3/ul (1.5-7.7); Eosinophil % 2.6 %; Lymphocyte % 5.2 %
[2018-11-29] MEDS: Aspirin EC TAB* 81 MG TAB.EC PO SCH (08:14)
--- NOTE | 2018-11-29 10:42 | PN ---
Progress Note - Progress Note Date of Service: 11/29/18 SOAP: Subjective: []Better today. Pain is largely gone, eating well. Urination is fine. Objective: [] HEENT: OM dry, pale CTA, SOB at rest RRR S1S2 Obese, epigastric pain and RUQ pain to palpation, focal and with rebound. +BS. Ext warm and god pulses Neuro - AAOx 3 CT scan reviewed. No acute bleeding, disease stable overall, slight progression of lung lesions, tr effusion. no colitis. Hgb 9.6, Cr 0.91, BUN 40 UA + RBC, + WBC, - LE Assessment: []73 yo on immunotherpay with acute abdominal pain, new anemia and increased Cr. Has responded to IVF and has been on antibiotics over last 24 hrs. Labs notable for additional drop in Hgb that is likely dilutional but also rise in BUN with decrease in Cr. Ddx: Gastritis, possible GIB from ulcer, portal hypertension. Plan: []1. Case discussed with GI and plan EGD in am. 2. Continue IVF and will continue antibiotics while in hospital 3. Check Fecal occult blood 4. Refused PPI, will take Zantac 150 mg po bid 5. Hold Eliquis pending EGD
[2018-11-29] MEDS: Famotidine TAB* 20 MG PO SCH ×2 (11:41→21:44)
--- NOTE | 2018-11-29 12:04 | DS ---
DISCHARGE SUMMARY: DATE OF ADMISSION: 11/28/18 DATE OF DISCHARGE: 11/30/18 DISCHARGE DIAGNOSES: 1. Metastatic hepatocellular cancer. 2. Immunotherapy. 3. Anemia. 4. Gastritis. 5. Possible urinary tract infection. DISPOSITION: Home. CONDITION ON DISPOSITION: Good. HOSPITAL COURSE: He developed acute abdominal pain early morning. It was 10/10 in severity and it was persistent for over 12 hours when he came to the emergency room. On admission, he was noted to have an increased creatinine of 1.46 from baseline of 0.91, BUN 29, total bilirubin of 1.5 and increased LFTs , hemoglobin was 13 in the setting of dehydration. He had a CT scan of the abdomen and pelvis that did not show acute bleeding, he has known pulmonary lesions and large liver lesions that were stable from 11/15/18, no evidence of colitis or pyelonephritis. He had a urine that showed +2 white blood cells, +3 red blood cells, negative leukocyte esterase and negative bacteria. He was given IV antibiotics and IV fluids and improved dramatically soon after admission. He took oxycodone for the pain, which helped; he is continued on aspirin once a day. We recommended Protonix, but he refused. He had been on Eliquis for PE, which was held. Improved after admission. He is eating reasonably well, has urination, has loose stools, but no diarrhea, no fevers or chills. Subsequent blood work shows hemoglobin of 9.6 this morning, down from 10.8 yesterday; white counts has normalized from 16 to 8.7; platelets of 262. His creatinine is 0.91, bilirubin down to 1.2, AST 64, ALT 77, alk phos 321. He had an elevated B12, elevated ferritin and normal iron saturation. His BUN remains elevated at 40, though the creatinine has decreased to 0.91. Endoscopy done on 11/30/18 w/o clear sources of bleeding, + duodenitis. PHYSICAL EXAMINATION: She has a temperature of 98.4, BP 124/59, pulse 80, respirations 18, and saturation 96%. HEENT: Mucosa moist. No lesions. Conjunctivae pale. Lungs: Clear to auscultation. Heart: Regular rhythm. S1 , S2. No murmurs or gallops. Abdomen: Continued epigastric pain, though decreased from yesterday. No flank pain. Good bowel sounds. No rebound or guarding. He has a palpable liver edge and he is obese. Extremities: +1 edema bilaterally. PLAN: Differential diagnosis for pain includes gastritis, nephritis, urinary tract infection secondary to dehydration, some concerns for gastrointestinal bleed. 1. Discharge home. 2. Follow up Dr. Magdaleno this week with CMP, CBC and he will arrange follow up at [place]. 3. Recent PE, re-start Eliquis. 4. Strongly encouraged taking PPI, he is willing to start trial of Protonix 5. We will hold blood pressure medicines until followup in clinic. 6. Complete course of antibiotics. MEDICATIONS AT DISCHARGE: 1. Aspirin 81 mg a day. 2. Oxycodone 5 mg q.6 h. p.r.n. 3. Zantac 150 mg p.o. b.i.d. Discussed the case at [facility] 11/28/18, agreed with plan. [id number]/CPS #: [id number] JEFF
--- NOTE | 2018-11-29 15:46 | CONS ---
GASTROENTEROLOGY CONSULT: DATE: 11/29/18 REFERRING PHYSICIANS: Dr. Fahad Moreno, Dr. Janet Quiroga. REASON FOR CONSULTATION: Falling hemoglobin and rising BUN in a man with hepatocellular carcinoma, Eliquis for history of pulmonary emboli, and severe GERD, with EGD done at [facility] in June 2017 during his initial presentation with hepatoma. 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 He has no history of chronic liver disease underlying that. There is a report from [facility] in the Cardiology office EMR demonstrating that he had an upper endoscopy at [facility] showing severe esophagitis, though he was severely ill in an ICU, having received 6 units of transfusion. In recent months, he denies any gastrointestinal problems, although when pressed will say that he has a lot of phlegm and throat clearing. He takes Zantac about 1 to 3 times a month. It is difficult to pin him down as to what sensation prompts that. He was on a PPI 18 months ago during his prolonged [facility] hospitalization and is not sure how it got stopped. He says that PPI had been given to him at [facility] during his chemotherapy infusion visits and he attributed not feeling well to that and initially deferred on taking a dose of it, but he has accepted intravenous dose at this time. The current admission occurred when he developed abdominal pain, chiefly on the left side, and presented to the ER. His white count was 16. Chest x-ray showed left effusion. The diagnosis was unclear and he was started on antibiotics. Eliquis was held and he was admitted for observation. Over the next 2 days, his hemoglobin has fallen from 13.0 to 10.8 to 9.6, and with his hydration he has had good urine output, though his BUN has unexpectedly declined from 29 to 37 to 40. Now, after 36 hours, he is feeling a little better, still with some left-sided abdominal distress, but able to eat , and there has been no fever or vomiting. The stools are dark. He had colonoscopies in 2001 and 2010, with no polyps found. PAST MEDICAL HISTORY: 1. Obesity. 2. Coronary disease - status post LAD drug-eluting stent in November 2014. 3. Hepatocellular cancer, June 2017, presenting with rupture. He had embolization at [facility] and radioembolization at [facility], and now twice , 4 weeks apart, he has had intravenous durvalumab immunotherapy at [facility]. ALLERGIES: LOVENOX, PENICILLIN, VANCOMYCIN, ERYTHROMYCIN - He described going from Lovenox to Xarelto as being a comfort choice, going from shots to a pill. He wondered about a cough with Xarelto and thus the switch to Eliquis. 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 He has 3 children. REVIEW OF SYSTEMS: No history of prior hepatitis, chronic liver disease, jaundice, chronic dyspepsia, seizures, CVA, TIA, syncope, overt GI bleeding or chronic lung disease. He is a lifetime nonsmoker. EXAM: He is a mildly overweight man, slightly pale, jovial and using humor in deflecting many questions initially. HEENT exam is unremarkable. He has no adenopathy. Lungs show diminished breath sounds, left base. Heart sounds are regular. The abdomen is obese, but symmetric. Bowel sounds are reduced, but some present. Abdomen is soft, but he is diffusely tender to limited pressure, but does not appear significantly distressed and there is no guarding. Rectal: Deferred. Extremities: Show no edema. LABS: Today hemoglobin 9.6, MCV 88. BUN 40. IMPRESSION: This 73-year-old man with a very complex past history is now 5 days after his second intravenous dose of immunotherapy per protocol. He presented with left-sided abdominal pain the cause of which is not clear. It is not clear how that might relate to a fall in hemoglobin and a rise in BUN, which seems paradoxical even though Eliquis has been held. Holding the Eliquis is of some concern given a pulmonary embolism that occurred 18 months ago. While it was part of a very long period in bed and supine, he does have the incurable malignancy that persists. Understanding the cause of his falling hemoglobin and potentially getting him to accept a PPI could make that management easier. Endoscopy is planned. He does recall that he had aspiration as part of this his [facility] stay and the difference with the current situation was discussed. [id number]/CPS #: [id number] MTDD
[2018-11-30] MEDS: NS 0.9% 1000 ML** 1,000 ML IV SCH ×2 (00:35→05:25)
[2018-11-30] MEDS: Cefepime 2 GM in Dextrose(*) 2 GM/50 ML BAG IV SCH (05:25)
[2018-11-30 07:42] LABS: Albumin 2.6 g/dL (3.2-5.2); Albumin/Globulin Ratio 0.8 (1-3); BUN/Creatinine Ratio 33.3 (8-20); Calcium 8.3 mg/dL (8.6-10.3); EGFR African American 113.7 (>60); EGFR Non-African American 93.9 (>60); Globulin 3.4 g/dL (2-4); Potassium 4.2 mmol/L (3.5-5.0); Total Bilirubin 1.2 mg/dL (0.2-1.0)
[2018-11-30 08:04] LABS: Hematocrit 29 % (42-52); Mean Corpuscular HGB Conc 34 g/dL (31-36); Mean Corpuscular Hemoglobin 30 pg (27-31); Mean Corpuscular Volume 88 fL (80-94); Mean Platelet Volume 7.8 fL (7.4-10.4); Platelet Count 220 10^3/uL (150-450); Red Cell Distribution Width 15 % (10-15); White Blood Count 7.6 10^3/uL (3.5-10.8)
[2018-11-30 08:19] LABS: ABS Eosinophils 0.2 10^3/ul (0-0.6); ABS Lymphocytes 0.4 10^3/ul (1.0-4.8); ABS Monocytes 0.5 10^3/ul (0-0.8); ABS Neutrophils 6.4 10^3/ul (1.5-7.7); Eosinophil % 3.1 %; Lymphocyte % 5.4 %; Nucleated Red Blood Cells % 0.1
[2018-11-30] MEDS: Aspirin EC TAB* 81 MG TAB.EC PO SCH (08:30)
[2018-11-30] MEDS: Famotidine TAB* 20 MG PO SCH (08:31)
[2018-11-30] MEDS ORDERED: Midazolam* 1 MG/ML 10 ML VIAL (10 MG) ONE (09:28)
[2018-11-30] MEDS ORDERED: fentaNYL* 50 MCG/ML 2 ML VIAL (100 MCG VIAL) ONE (09:28)
[2018-11-30 15:40] VITALS: BP 128/63
--- NOTE | 2018-11-30 20:51 | DS ---
CC: Dr. Moreno; Dr. Michael Hunt; Dr. Lesa Quiroga * ADDENDUM: DISCHARGE SUMMARY: DATE OF ADMISSION: 11/28/18 DATE OF DISCHARGE: 11/30/18 HOSPITAL COURSE: The patient was seen and evaluated by myself at bedside, the patient was to undergo a GI evaluation as well as EGD today. The patient underwent an EGD today with Dr. Hunt. Dr. Hunt, upon having the EGD done , reported to me that the patient is having duodenitis as well as hiatal hernia. The patient did not have any active bleeding and he recommended the patient go home on pantoprazole. There was no blood noted in the EGD as well as no high risk culprit. However, the patient does have now diagnoses of duodenitis as well as hiatal hernia, recommendations were made to start the patient on pantoprazole. I discussed with the patient and the family regarding starting pantoprazole. They were very hesitant but agreeable to start pantoprazole, but reported that they may not take it custodial; however, agreeable to try. Now, the question remains whether to restart the patient on Eliquis. It seems that the patient had saddle pulmonary embolism along with a DVT and was started on Lovenox initially and then it was changed to Xarelto and Xarelto did not work out for them, so it was changed to Eliquis. At this point , the patient does have a new found anemia, which could be secondary to chemotherapy, but was also found to have hiatal hernia and duodenitis. At this point, I discussed the case with Dr. Moreno, as well as Dr. Hunt regarding the Eliquis. Dr. Moreno recommended to send the patient home on Eliquis. There will be a repeat blood work on 12/02/18 for a CBC and a CMP after which the patient is to follow up with Dr. Moreno's office as well as primary care provider. DISCHARGE MEDICATIONS: Continue Eliquis 5 mg b.i.d. as well as start the patient on Pantoprazole 40 mg b.i.d. along with medications that were sent to the pharmacy by Dr. Moreno including aspirin 81 mg daily, Zantac 150 mg b.i.d. as well as oxycodone 5 mg every 6 hours as needed. DISCHARGE DISPOSITION: The patient is to be discharged home. DISCHARGE CONDITION: Fair and stable. The patient is to go home with . DISCHARGE DIAGNOSES: To include hiatal hernia as well as duodenitis. Dr. Moreno sent levofloxacin 500 mg for the next 3 days as well as ranitidine 150 mg b.i.d. to the patient's pharmacy. I discussed with the patient and the family regarding taking pantoprazole if preferred; however, they are reluctant and Dr. Moreno did send Zantac yesterday. DISCHARGE INSTRUCTIONS: The patient is to get a CBC as well as CMP done on , results to be faxed over to Dr. Moreno's office as well as primary care provider. The patient is to follow up with Dr. Fahad Moreno in 1 to 3 days, Dr. Michael Hunt in 1 month, and Dr. Lesa Quiroga, primary care provider within 1 or 3 days, call PCP for an appointment. The patient is told to return to the emergency room for bloody vomiting, fevers , chills, shortness of breath or if any new symptoms arise. Discharge instructions were discussed with the patient as well as family member at bedside. I also discussed the case with Dr. Michael Hunt as well as Dr. Fahad Moreno. [id number]/[facility] #: [id number] JEFF
--- NOTE | 2018-11-30 22:04 | PRO ---
DATE: 11/30/18 - ROOM #444 REFERRING PHYSICIANS: Dr. Lesa Quiroga, Dr. Fahad Moreno.* PROCEDURE: Upper gastrointestinal endoscopy and biopsy, gastric fundal tail sessile polyps, CLOtest. 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 He was not having overt GI bleeding. Yesterday's hemoglobin was 9.6 and BUN 40 and then today hemoglobin 10.0, BUN 27. He was known to have had severe erosive GERD about 18 months ago when he was hospitalized for a prolonged period after intraabdominal hemorrhage from his hepatoma. That was the original presentation. His today adds further history. She keeps a more organized focus on any meds. He was placed on a PPI after his PA in 2014, but did not take it very long. She knows that he has a bottle of basically unused pantoprazole in his dresser. He was placed on PPIs during his time at [facility] 18 months ago though no details are known. He had come to the conclusion that he could not tolerate PPIs. Yesterday, he told me that short term use of a PPI was suggested when he was getting his durvalumab infusions at [facility]. He has associated the PPI with "feeling bad" and therefore added that to his reasons for not wishing to take it. His states he characteristically minimizes almost all complaints. ENDOSCOPIST: Dr. Hunt. MEDICATIONS: Midazolam 7, fentanyl 75. FINDINGS: He is a moderately overweight older man giving humorous sarcastic answers to questions almost uniformly and his is clarifying. He was positioned left side down and moderate sedation induced with sequential doses of medication. He tolerated the exams well. EGD: Larynx - large tongue and it took quite a bit of positioning to get around it as he would deviate the scope. Esophagus - easily traversed and normal in the upper, mid, and lower esophagus with the EG junction at 38 above a moderate size hiatal hernia with some focal erosive scarring around the squamocolumnar junction at 38. There was no actual active erosive disease or ulcer. There was no blood. Stomach - generally smooth uninflamed mucosa, although in the fundus, there were 40 to 50 small pale innocuous sessile polyps with somewhat granular surface. They appeared hyperplastic, but were sessile and without stalks. The cardia was relatively spared. The distal body and antrum were spared. There were no erosions there. Duodenum - the pylorus, bulb, and second through fourth portions had normal contours. The mucosal pattern in the bulb and apex of the bulb had a granular erythema though no erosions or exudate. It appeared like a diffuse Wale's gland hypertrophy or prominence. There were no actual erosions or ulcers and no blood seen. During withdrawal, biopsies were taken from the gastric fundal polyps and a CLOtest from the gastric body. IMPRESSION: 1. Moderate hiatal hernia at esophagogastric junction scar. 2. Gastroesophageal reflux disease - clinical symptoms are revealed mostly by speaking to his . 3. Gastric fundal polyps, biopsy pending. 4. Duodenal erythema - nonspecific appearing, most consistent with Wale's gland prominence. 5. Gastrointestinal bleeding of subacute nature - no clear cause seen, although whether the findings could contribute to bleeding under the influence of Eliquis cannot be ruled out. Taking a PPI concurrent with Eliquis is suggested. [id number]/[facility] #: [id number] [facility]
== END 2018-11-30 15:50 | disposition home or self-care (01) | DRG 392 ==
LOC: ED 17:45 → MEDTELE 11-28 01:42
PROVIDERS: ADMIT Internal Medicine; ATTEND Internal Medicine
PROC: 0DD68ZX Extraction of Stomach, Via Natural or Artificial Opening Endoscopic, Diagnostic (ICD-10-PCS; principal; 2018-11-30)
DX: K29.80 Duodenitis without bleeding (principal); C22.0 Liver cell carcinoma; K44.9 Diaphragmatic hernia without obstruction or gangrene; D64.81 Anemia due to antineoplastic chemotherapy; K31.7 Polyp of stomach and duodenum; E66.9 Obesity, unspecified; Z79.01 Long term (current) use of anticoagulants; Z79.82 Long term (current) use of aspirin; Z79.891 Long term (current) use of opiate analgesic; K21.9 Gastro-esophageal reflux disease without esophagitis; Z79.899 Other long term (current) drug therapy; Z88.1 Allergy status to other antibiotic agents; Z88.0 Allergy status to penicillin; Z88.8 Allergy status to other drugs, medicaments and biological substances; Z80.8 Family history of malignant neoplasm of other organs or systems; Z80.3 Family history of malignant neoplasm of breast; Z80.42 Family history of malignant neoplasm of prostate; Z82.49 Family history of ischemic heart disease and other diseases of the circulatory system; Z68.32 Body mass index [BMI] 32.0-32.9, adult; Z86.711 Personal history of pulmonary embolism; Z86.718 Personal history of other venous thrombosis and embolism
CPT/HCPCS: 36415; 71045; 71275; 74174; 80048; 80053; 81003; 81015; 82270; 82607; 82728; 83540; 83550; 83605; 83690; 83735; 84484; 85025; 85045; 85610; 86850; 86900; 86901; 87040; 87077; 87086; 88305; 93005; 93306; 99156; 99157; 99232; 99284; A9270-GY; J0692; J2250; J3010; Q9967

== ENCOUNTER 2018-12-26 16:24 | Inpatient (IN) | payer OTHER ==
[2018-12-26] MEDS ORDERED: Morphine 4 MG/ML VIAL (1 ml) 4 MG/ML VIAL IV ONE ×3 (17:19→23:47)
[2018-12-26] MEDS ORDERED: Ondansetron INJ* 2 MG/ML VIAL IV ONE (17:19)
[2018-12-26] MEDS ORDERED: NS 0.9% 1000 ML** 1,000 ML IV ONE ×2 (17:19→18:07)
[2018-12-26] MEDS ORDERED: Cefepime 2 GM in Dextrose(*) 2 GM/50 ML BAG IV ONE (17:20)
[2018-12-26 17:24] LABS: Activated Partial Thrombo Time 45.1 seconds (26.0-38.0); INR 2.18 (0.82-1.09)
[2018-12-26] MEDS ORDERED: Acetaminophen TAB* 325 MG PO ONE (17:24)
--- NOTE | 2018-12-26 17:25 | ED ---
Abdominal Pain/Male - HPI Summary HPI Summary: A 73 y/o male presents to [facility] with a chief complaint of worsened abdominal pain. The patient started Lenvima for liver cancer after going to [facility] three days ago. He started spiking fevers two days ago. Today he had a temperature of 101.3 at 14:00 per . He also has N/V. He says that he has had 3 embolizations so far and probably has advanced cancer. He notes that he has seen the whole oncology team at [facility]. At end of September, his reports radio embolization didn't do enough, in October he went on immunotherapy but last week he was taken off because it was not doing enough. He took Tylenol 350 mg last night and 5mg Oxycodone [employer]. - History of Current Complaint Chief Complaint: EDAbdPain Stated Complaint: FEVER/PAIN PER Time Seen by Provider: 12/26/18 16:45 Hx Obtained From: Patient Onset/Duration: Sudden Onset, Lasting Days, Still Present Timing: Constant, Lasting Days Severity Initially: Moderate Severity Currently: Moderate Pain Intensity: 4 Pain Scale Used: 0-10 Numeric Location: Discrete At: RUQ Radiates: No Aggravating Factor(s): Nothing Alleviating Factor(s): Nothing Associated Signs And Symptoms: Positive: Fever, Nausea, Vomiting - Allergies/Home Medications Allergies/Adverse Reactions: Allergies Allergy/AdvReac Type Severity Reaction Status Date / Time erythromycin base Allergy Heartburn Verified 11/12/18 18:32 Penicillins Allergy Unknown Verified 11/12/18 18:32 Reaction Details vancomycin Allergy Rash And Verified 11/12/18 18:32 Itching Home Medications: Home Medications Valsartan/HCTZ 160/25(NF) [Diovan Hct 160/25(NF)] 1 tab PO DAILY 12/26/18 [ History Confirmed 12/26/18] PMH/Surg Hx/FS Hx/Imm Hx Endocrine/Hematology History: Reports: Hx Anticoagulant Therapy - Before having vericose veins removed Denies: Hx Blood Disorders, Hx Blood Transfusions, Hx Bone Marrow Disease, Hx Diabetes, Hx Systemic Lupus Erythematosus, Hx Sickle Cell Disease, Hx Thyroid Disease, Hx Unexplained Bleeding, Other Endocrine/Hematological Disorders Cardiovascular History: Reports: Hx Deep Vein Thrombosis, Hx Hypertension, Hx Myocardial Infarction, Other Cardiovascular Problems/Disorders - VEIN SURG RIGHT LEG 8-10 YRS AGO, DYSLIPIDEMIA Respiratory History: Reports: Hx Pulmonary Embolism - saddle, Hx Sleep Apnea Denies: Hx Asthma, Hx Chronic Bronchitis, Hx Chronic Obstructive Pulmonary Disease (COPD), Hx Cystic Fibrosis, Hx Lung Cancer, Hx Pleural Effusion, Hx Pneumonia, Hx Pulmonary Edema, Hx Seasonal Allergies, Other Respiratory Problems /Disorders GI History: Reports: Other GI Disorders - Hx liver bleeding History: Reports: Hx Benign Prostatic Hyperplasia, Hx Kidney Stones Denies: Hx Acute Renal Failure, Hx Chronic Renal Failure, Hx Dialysis, Hx Kidney Infection, Hx Renal Disease, Other Problems/Disorders Musculoskeletal History: Reports: 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, Hx Congenital Bone Abnormalities - See back problems Denies: Hx Arthritis, Hx Bursitis, Hx Fibromyalgia, Hx Gout, Hx Orthopedic Injury, Hx Osteoporosis, Hx Scoliosis, Hx Tendonitis, Other Musculoskeletal History Sensory History: Reports: Hx Cataracts, 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, Hx Vision Problem - see above Denies: Hx Contacts or Glasses, Hx Eye Injury, Hx Eye Prosthesis, Hx Glaucoma , Hx Macular Degeneration, Hx Deafness, Hx Hearing Aid, Hx Hearing Problem, Other Sensory Impairments Opthamlomology History: Reports: Hx Cataracts, 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, Hx Vision Problem - see above Denies: Hx Contacts or Glasses, Hx Eye Injury, Hx Eye Prosthesis, Hx Glaucoma , Hx Macular Degeneration, Other Sensory Impairments - Surgical History Surgery Procedure, Year, and Place: 1967 hand injured by saw and re-implanted, rt leg "vein surgery", hepatic artery embolization Hx Anesthesia Reactions: No - Immunization History Date of Tetanus Vaccine: unk Date of Influenza Vaccine: fall 2016 Infectious Disease History: No Infectious Disease History: Denies: Hx Clostridium Difficile, Hx Hepatitis, Hx Human Immunodeficiency Virus (HIV), Hx of Known/Suspected MRSA, Hx Shingles, Hx Tuberculosis, Hx Known/ Suspected VRE, Hx Known/Suspected VRSA, History Other Infectious Disease, Traveled Outside the [place] in Last 30 Days - Family History Known Family History: Positive: Hypertension - Social History Alcohol Use: None Alcohol Amount: 1-2/YEAR Hx Substance Use: No Substance Use Type: Reports: None Substance Use Comment - Amount & Last Used: former drug user ( 20 years ago) Hx Tobacco Use: No Smoking Status (MU): Never Smoked Tobacco Have You Smoked in the Last Year: No Review of Systems Positive: Fever Positive: Abdominal Pain, Vomiting, Nausea All Other Systems Reviewed And Are Negative: Yes Physical Exam - Summary Physical Exam Summary: GENERAL: Patient is a well-developed and nourished M who is lying comfortable in the stretcher. Patient is not in any acute respiratory distress. HEAD AND FACE: Normocephalic EYES: PERRLA, EOMI x 2. EARS: Hearing grossly intact. MOUTH: Oropharynx within normal limits. NECK: Supple, trachea is midline, no adenopathy, no JVD, no carotid bruit. CHEST: Symmetric, no tenderness at palpation LUNGS: Clear to auscultation bilaterally. No wheezing or crackles. CVS: Regular rate and rhythm, S1 and S2 present, no murmurs or gallops appreciated. ABDOMEN: Soft, TTP RUQ. Bowel sounds are normal. No abnormal abdominal pulsations. EXTREMITIES: Full ROM in all major joints, no edema, no cyanosis or clubbing. NEURO: Alert and oriented x 3. No acute neurological deficits. Speech is normal and follows commands. SKIN: Dry and warm Triage Information Reviewed: Yes Vital Signs On Initial Exam: Initial Vitals Temp Pulse Resp BP Pulse Ox 100.6 F 120 32 134/91 94 12/26/18 16:27 12/26/18 16:27 12/26/18 16:27 12/26/18 16:27 12/26/18 16:27 Vital Signs Reviewed: Yes Diagnostics - Vital Signs Vital Signs Temp Pulse Resp BP Pulse Ox 12/26/18 16:48 94 12/26/18 16:46 115 37 131/89 92 12/26/18 16:45 100.9 F 12 12/26/18 16:27 100.6 F 120 32 134/91 94 - Laboratory Result Diagrams: 12/27/18 10:29 12/27/18 10:29 Lab Statement: Any lab studies that have been ordered have been reviewed, and results considered in the medical decision making process. - Radiology CXR Radiology Interpretation Completed By: Radiologist Summary of Radiographic Findings: 1. PULMONARY NODULES, UNCHANGED. 2. SMALL LEFT PLEURAL EFFUSION, UNCHANGED. ED physician has reviewed this imaging report. - EKG 17:23 Cardiac Rate: Tachycardia - 106 bpm EKG Rhythm: Sinus Tachycardia Summary of EKG Findings: EKG at 17:23 revealed Sinus tachycardia at 106 bpm, normal axis, normal interval. Abdominal Pain Male Course/Dx - Course Course Of Treatment: A 73 y/o male presents to [facility] with a chief complaint of worsened abdominal pain. The patient started Lenvima for liver cancer after going to [facility] three days ago. He started spiking fevers two days ago. The physical exam revealed TTP RUQ. EKG at 17:23 revealed Sinus tachycardia at 106 bpm, normal axis, normal interval. CXR impression: 1. PULMONARY NODULES, UNCHANGED. 2. SMALL LEFT PLEURAL EFFUSION, UNCHANGED. In the ED course the patient was given Tylenol PO, Cefepime IV, Morphine IV, Zofran IV and Sodium Chloride IV. Blood work and chemistries obtained. Lactic acid of 2.6 at 17:06. The patient will be signed out from Dr. hSaw to Dr. Khan upon shift change at 19:00 12/26/[address] abdomen/pelvis. - Diagnoses Provider Diagnoses: Abdominal pain, Hemoperitoneum - Critical Care Time Critical Care Time: 30-74 min Discharge - Sign-Out/Discharge Documenting (check all that apply): Sign-Out Patient Signing out patient TO: Haris Khan - pending CT abdomen/pelvis Patient Received Moderate/Deep Sedation with Procedure: No - Discharge Plan Condition: Stable Disposition: ADMITTED TO [facility] - Billing Disposition and Condition Condition: STABLE Disposition: Admitted to [facility] - Attestation Statements Document Initiated by Mp: Yes Documenting Scribe: Earnest Godoy Provider For Whom Mp is Documenting (Include Credential): Jay Shaw MD Scribe Attestation: Earnest Catalan scribed for Jay Shaw MD on 12/27/18 at 1202. Scribe Documentation Reviewed: Yes Provider Attestation: The documentation as recorded by the Earnest jeffries accurately reflects the service I personally performed and the decisions made by me, Tonia Shaw MD Status of Scribe Document: Viewed
[2018-12-26 17:32] LABS: Albumin 3.6 g/dL (3.2-5.2); Albumin/Globulin Ratio 0.8 (1-3); C Reactive Protein 142.95 mg/L (<8.01); Calcium 9.5 mg/dL (8.6-10.3); EGFR African American 94.6 (>60); EGFR Non-African American 78.2 (>60); Globulin 4.4 g/dL (2-4); Potassium 4.4 mmol/L (3.5-5.0); Total Bilirubin 2.4 mg/dL (0.2-1.0)
[2018-12-26 17:33] LABS: Troponin I 0.03 ng/mL (<0.04)
[2018-12-26 17:37] LABS: ABS Lymphocytes 0.5 10^3/ul (1.0-4.8); ABS Neutrophils 7.9 10^3/ul (1.5-7.7); Hematocrit 42 % (42-52); Hemoglobin 14.2 g/dL (14.0-18.0); Lymphocyte % 5.8 %; Mean Corpuscular HGB Conc 34 g/dL (31-36); Mean Corpuscular Hemoglobin 30 pg (27-31); Mean Corpuscular Volume 89 fL (80-94); Mean Platelet Volume 7.6 fL (7.4-10.4); Platelet Count 218 10^3/uL (150-450); Red Blood Count 4.71 10^6 /uL (4.18-5.48); Red Cell Distribution Width 17 % (10-15); White Blood Count 9.4 10^3/uL (3.5-10.8)
[2018-12-26] MEDS ORDERED: Iohexol 300* (CONTRAST) 10 ML SDV IV ONE (19:00)
--- NOTE | 2018-12-26 21:00 | ED ---
Progress - Progress Note Progress Note: Receiving sign-out from Dr. Shaw at shift change [address] Abd/Pel. CT Abd/pel impression: 1. Mild bibasilar fibro-atelectatic change with trace pleural effusions. 2. Right base pulmonary nodules consistent with metastatic disease. 3. Multiple hepatic masses consistent with metastasis, increased since 09/05/18. Some of the masses demonstrate internal contained hemorrhage or pseudoaneurysm 4. Cholelithiasis 5. Minimal perihepatic fluid which is similar to the prior study. 6. Colonic diverticulosis without diverticulitis. 7. Question of trace hemoperitoneum. ED Provider has reviewed this report. Spoke with Dr. Moreno, Oncology, at 2109, who stated to stop the eliquis, do not start antibiotics, and to admit to the hospitalist. This patient will be admitted. Dr. Amaya, hospitalist, accepted the patient for admission. A plan for admission was discussed with the patient and he was agreeable with this plan. Re-Evaluation - Re-Evaluation First Eval Re-Evaluation Time: 20:57 Comment: Discussed CT Abd/Pel results with patient. Course/Dx - Course Course Of Treatment: Receiving sign-out from Dr. Shaw at shift change [address] Abd/Pel. CT Abd/pel impression: 1. Mild bibasilar fibro-atelectatic change with trace pleural effusions. 2. Right base pulmonary nodules consistent with metastatic disease. 3. Multiple hepatic masses consistent with metastasis, increased since 09/05/18. Some of the masses demonstrate internal contained hemorrhage or pseudoaneurysm. 4. Cholelithiasis. 5. Minimal perihepatic fluid which is similar to the prior study. 6. Colonic diverticulosis without diverticulitis. 7. Question of trace hemoperitoneum. ED Provider has reviewed this report. Spoke with Dr. Moreno, Oncology, at 2109, who stated to stop the eliquis, do not start antibiotics, and to admit to the hospitalist. This patient will be admitted. Dr. Amaya, hospitalist, accepted the patient for admission. A plan for admission was discussed with the patient and he was agreeable with this plan. - Diagnoses Provider Diagnoses: Abdominal pain, Hemoperitoneum - Critical Care Time Critical Care Time: 30-74 min Discharge - Sign-Out/Discharge Documenting (check all that apply): Patient Departure - Admission - Discharge Plan Condition: Stable Disposition: ADMITTED TO [facility] - Billing Disposition and Condition Condition: STABLE Disposition: Admitted to [facility] - Attestation Statements Document Initiated by Mp: Yes Documenting Scribe: Kadeem Perry Provider For Whom Mp is Documenting (Include Credential): Haris Khan MD Scribe Attestation: Kadeem Catalan, scribed for Haris Khan MD on 12/27/18 at 0623. Scribe Documentation Reviewed: Yes Provider Attestation: The documentation as recorded by the [email or web address] sears accurately reflects the service I personally performed and the decisions made by me, Haris Khan MD Status of Scribe Document: Viewed
[2018-12-26 21:22] LABS: Urine Appearance Clear; Urine Bacteria Absent (Absent); Urine Bilirubin Negative (Negative); Urine Blood 2+ (Negative); Urine Color Yellow; Urine Glucose Negative (Negative); Urine Ketones Negative (Negative); Urine Nitrite Negative (Negative); Urine Protein Negative (Negative); Urine Red Blood Cell 2+(6-10/hpf) (Absent); Urine Specific Gravity > 1.060 (1.010-1.030); Urine Urobilinogen Negative (Negative); Urine White Blood Cell Absent (Absent)
[2018-12-27] MEDS ORDERED: oxyCODONE/Acetamin 5/325 MG* TAB PO PRN (00:36)
[2018-12-27] MEDS ORDERED: oxyCODONE TAB* 5 MG TAB PO PRN (00:38)
[2018-12-27] MEDS: NS 0.9% 1000 ML** 1,000 ML IV SCH ×2 (02:36→17:58)
--- NOTE | 2018-12-27 02:41 | HP ---
CC: Dr. Lesa Quiroga; Dr. Fahad Moreno ADMISSION HISTORY AND PHYSICAL: DATE OF ADMISSION: 12/27/18 CHIEF COMPLAINT: Abdominal pain and vomiting and fever. HISTORY OF PRESENT ILLNESS: This is a 73-year-old gentleman with past medical history of metastatic hepatocellular carcinoma with the history of bleeding from the malignancy and multiple embolization a nd stabilization of his bleeding and multiple chemotherapy, now on some new medication called Lenvima from [facility]. He comes in today with the chief complaint of worsening abd ominal pain and while in the ER, the patient was noted to have a fever of 100.9. The patient's pain h as been diffuse pain, but worse on the right upper quadrant where his liver malignancy is and at home the temperature was noted to be 101.3 when the took the patient's fever. Based on his fevers, the patient's oncologist from [facility] suggested he should probably be evaluated and the patien t decided to come to the ER. The patient otherwise offers complaint of vomiting. He stated that he had 4 vomiting episodes yesterday. He also stated that his bowel movement is abnormal, but this has been ongoing issue for him for over a year and there is no change in his bowel movement, which is usu ally very minimal amount of bowel movement. He also has some shortness of breath, but this is also c hronic, nothing changed, and no other chest pain, no palpitations. PAST MEDICAL HISTORY: As mentioned, hepatocellular carcinoma, diagnosed in June 2017, presented with hepatic artery rupture and hemorrhage of the tumor. He was transferred to [facility] where he had e mbolization and stabilization of the bleeding. He later also had further frequency embolization and chemoembolization at the [facility] and he has also had a history of aspiration pneumon ia for which he needed to be intubated at the [facility] facility and post diagnosis of cancer in ry about 6 weeks of his intense treatment, he once was also diagnosed with saddle pulmonary emboli fo r which he was initially on heparin, but with complication of that he was switched to Xarelto and lat er switched to Eliquis. He also has a history of coronary artery disease, status post stenting on and has a history of hypertension and kidney stones and benign prostatic hypertrophy. PAST SURGICAL HISTORY: He had an injury to his head, which needed surgical correction and right leg vein stripping and hepatic artery embolization and coronary stenting. HOME MEDICATIONS: The patient is currently on: 1. Aspirin 81 mg daily. 2. Eliquis 5 mg p.o. b.i.d. 3. Ranitidine 150 mg p.o. b.i.d. 4. Roxicodone 5 mg q.6 hours p.r.n. 5. Valsartan/hydrochlorothiazide 1 tablet oral daily. ALLERGIES: The patient is allergic to ERYTHROMYCIN BASE, PENICILLIN, VANCOMYCIN, and LOVENOX is also documented at certain areas. FAMILY HISTORY: Notable for brother with thyroid cancer, mother with breast cancer, and second broth er with prostate cancer, and father of heart failure. 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 He is , has 3 children. He has never smoked. No alcohol or drug use. He is a full code at this point, but is considering to fill up a form for do not resuscitate and do not intubate, but he wants to discuss thi s with his first before formalizing this. He understands that for now he will be kept as full c ode. REVIEW OF SYSTEMS: A 14-point review of systems did not reveal any new information other than what i s stated in the HPI. PHYSICAL EXAMINATION GENERAL: The patient is awake, alert, and oriented x3. He does not appear to be in any acute respir atory distress. MARIO SIGNS: As mentioned, the patient did have a fever of 100.9 max while in the ER. Current vital signs include BP of 116/81, heart rate 76, respirations rate 20, saturating 97% on room air. HEAD AND NECK: Atraumatic, normocephalic. Bilateral pupils are reactive. Oral mucosa was moist. N tere: Supple. No jugular venous distention. LUNGS: Clear to auscultation bilaterally. No wheezing, rhonchi, or rales. HEART: S1, S2. Regular rate and rhythm. ABDOMEN: Obese, soft, minimal tenderness on the right upper quadrant with positive bowel sounds. EXTREMITIES: No cyanosis, clubbing, or edema. DIAGNOSTIC STUDIES/LAB DATA: CBC was unremarkable. Coagulation profile showed INR elevated at 2.8. Comprehensive metabolic panel shows hyponatremia with sodium of 130, chloride of 196, random glucos e was noted of 123, lactic acid was elevated at 2.6, which resolved to 1.6. LFTs were abnormal. AST , ALT were in the 200s and 100, alkaline phosphatase was noted to be 423. Total bilirubin was also m inimally elevated at 2.4. C-reactive protein was elevated at 142. The patient's chest x-ray showed pulmonary nodule unchanged and small left pleural effusion, which is also unchanged from previous studies. A CT abdomen and pelvis was read as mild bibasilar fibrous atelectatic changes with trace pleural eff usions, right base pulmonary nodule consistent with metastatic disease, multiple hepatic masses consi stent with metastasis, increased since August 2018, some of the mass has demonstrated internal contain ed hemorrhage or pseudoaneurysm. There was also cholestasis and minimal perihepatic fluid, which is similar to prior study, colonic diverticulosis without diverticulitis, question of trace hemoperitone um was raised as well. EKG showed sinus tachycardia at 106 beats per minute without any ST elevation when compared to his ol ren EKG from about a month ago, it is essentially unchanged and showed the same sinus tachycardia. IMPRESSION: This is 73-year-old male with metastatic hepatocellular carcinoma here due to abdominal pain and noted to have fever. Dr. Moreno was consulted from the ER, who suggested the patient to be ad mitted by the hospitalist and he recommended the patient to be not started on any antibiotics, althou gh, the patient already received cefepime in the ER and to hold his Eliquis, and Dr. Moreno will review the patient's case in the morning and consider further treatment. ASSESSMENT AND PLAN: 1. Abdominal pain with fever, could be reactive due to hemoperitoneum. As suggested, I will monitor ed for any infectious etiology. At this point, the patient already had blood cultures performed, [facility] we will follow up and as recommended by Dr. Moreno, we will hold off any antibiotics use. 2. History of hepatocellular carcinoma. 3. We will continue current care. 4. History of pulmonary embolism, we will hold Eliquis given his hemoperitoneum. 5. History of coronary artery disease, status post stenting. 6. History of hypertension. 7. History of deep venous thrombosis and pulmonary embolism. We will hold Eliquis based on Dr. Moreno 's recommendation. The patient stated that his both deep venous thrombosis and pulmonary embolism cummins ve resolved per previous scans and testing and he was okay with just sequential compression device at both [facility] where he was admitted a few weeks ago and at [facility] n he was admitted about a month ago, so we will reinitiate the SCDs while he is here and consider res tarting the Eliquis once okay with Dr. Moreno. [id number]/[facility] #: [id number]
[2018-12-27] MEDS: Morphine INJ* 2 MG/ML 1 ML SYRINGE (TWO MG - NEW SYRINGE VERSION) IV PRN ×4 (06:42→23:45)
[2018-12-27] MEDS: Hydrochlorothiazide TAB* 25 MG PO SCH (08:42)
[2018-12-27] MEDS: Valsartan TAB* 160 MG PO SCH (08:42)
[2018-12-27] MEDS: Famotidine TAB* 20 MG PO SCH ×3 (08:45→19:45)
[2018-12-27] MEDS: Pantoprazole TAB * 40 MG TAB PO SCH ×3 (08:47→19:46)
[2018-12-27] MEDS ORDERED: Valsartan/HCTZ 160/25(NF) TAB PO SCH (09:00)
[2018-12-27 10:35] LABS: ABS Lymphocytes 0.6 10^3/ul (1.0-4.8); ABS Monocytes 0.8 10^3/ul (0-0.8); ABS Neutrophils 7.4 10^3/ul (1.5-7.7); Hematocrit 38 % (42-52); Hemoglobin 12.8 g/dL (14.0-18.0); Lymphocyte % 6.7 %; Mean Corpuscular HGB Conc 34 g/dL (31-36); Mean Corpuscular Hemoglobin 30 pg (27-31); Mean Corpuscular Volume 90 fL (80-94); Mean Platelet Volume 7.2 fL (7.4-10.4); Platelet Count 178 10^3/uL (150-450); Red Blood Count 4.27 10^6 /uL (4.18-5.48); Red Cell Distribution Width 17 % (10-15); White Blood Count 8.9 10^3/uL (3.5-10.8)
--- NOTE | 2018-12-27 10:56 | PN ---
Progress Note - Progress Note Date of Service: 12/27/18 SOAP: Subjective: [Adam was admitted yesterday evening with fever, increased abdominal pain, n/ v. CT scan was initially read as possible hemoperitoneum with tumor hemmorhage. Patient is under the care of [facility] and has been on trial with durvalumab for metastatic HCC. Durvalumab was discontinued due to progressive disease after ~6 weeks and started lenvatinib earlier this week. Patient noted rise in sBP of 20 mmHg after the first 2 days of the medication. Then developed some mild diarrhea and began vomiting the day prior to admission. Yesterday he developed a fever to ~101.5F at home with increased RUQ pain and was directed to the ER by the oncology department. He was empirically placed on IV abx and admitted. This am, he reports feeling better. Ate a little for breakfast. No further vomiting. No diarrhea. Abd pain has improved.] Objective: [ Vital Signs: Temp Pulse Resp BP Pulse Ox 98.5 F 70 18 107/52 95 12/27/18 03:10 12/27/18 03:10 12/27/18 08:48 12/27/18 03:10 12/27/18 03:10 Famotidine (Pepcid Tab*) 20 mg PO BID [facility]; Protocol Last Admin: 12/27/18 08:45 Dose: 20 mg Hydrochlorothiazide (Hydrodiuril Tab*) 25 mg PO DAILY [facility] Last Admin: 12/27/18 08:42 Dose: Not Given Sodium Chloride (Ns 0.9% 1000 Ml) 1,000 mls @ 75 mls/hr IV PER RATE [facility] Last Admin: 12/27/18 02:36 Dose: 75 mls/hr Morphine Sulfate (Morphine Inj (Syringe))*) 2 mg IV Q4H PRN PRN Reason: PAIN - SEVERE Last Admin: 12/27/18 06:42 Dose: 2 mg Oxycodone HCl (Roxycodone Tab*) 5 mg PO Q6H PRN PRN Reason: PAIN Pantoprazole Sodium (Protonix Tab*) 40 mg PO BID [facility] Last Admin: 12/27/18 08:47 Dose: Not Given Valsartan (Diovan Tab*) 160 mg PO DAILY [facility] Last Admin: 12/27/18 08:42 Dose: Not Given Laboratory Results - last 24 hr 12/26/18 12/26/18 12/26/18 16:46 17:06 17:06 WBC 9.4 RBC 4.71 Hgb 14.2 Hct 42 MCV 89 MCH 30 MCHC 34 RDW 17 H Plt Count 218 MPV 7.6 Neut % (Auto) 83.8 Lymph % (Auto) 5.8 [place] % (Auto) 10.2 Eos % (Auto) 0.0 Baso % (Auto) 0.2 Absolute Neuts (auto) 7.9 H Absolute Lymphs (auto) 0.5 L Absolute Monos (auto) 1.0 H Absolute Eos (auto) 0.0 Absolute Basos (auto) 0.0 Absolute Nucleated RBC 0.0 Nucleated RBC % 0.0 INR (Anticoag Therapy) 2.18 H APTT 45.1 H Sodium 130 L Potassium 4.4 Chloride 96 L Carbon Dioxide 24 Anion Gap 10 BUN 19 Creatinine 0.95 Est GFR ( Amer) 94.6 Est GFR (Non-Af Amer) 78.2 BUN/Creatinine Ratio 20.0 Glucose 123 H Lactic Acid Calcium 9.5 Total Bilirubin 2.40 H AST 204 H ALT 104 H Alkaline Phosphatase 423 H Troponin I 0.03 C-Reactive Protein 142.95 H Total Protein 8.0 Albumin 3.6 Globulin 4.4 H Albumin/Globulin Ratio 0.8 L Urine Color Urine Appearance Urine pH Ur Specific [place] Urine Protein Urine Ketones Urine Blood Urine Nitrate Urine Bilirubin Urine Urobilinogen Ur Leukocyte Esterase Urine WBC (Auto) Urine RBC (Auto) Urine Bacteria Urine Glucose 12/26/18 12/26/18 12/26/18 17:06 20:47 21:06 WBC RBC Hgb Hct MCV MCH MCHC RDW Plt Count MPV Neut % (Auto) Lymph % (Auto) [place] % (Auto) Eos % (Auto) Baso % (Auto) Absolute Neuts (auto) Absolute Lymphs (auto) Absolute Monos (auto) Absolute Eos (auto) Absolute Basos (auto) Absolute Nucleated RBC Nucleated RBC % INR (Anticoag Therapy) APTT Sodium Potassium Chloride Carbon Dioxide Anion Gap BUN Creatinine Est GFR ( Amer) Est GFR (Non-Af Amer) BUN/Creatinine Ratio Glucose Lactic Acid 2.6 H* 1.6 Calcium Total Bilirubin AST ALT Alkaline Phosphatase Troponin I C-Reactive Protein Total Protein Albumin Globulin Albumin/Globulin Ratio Urine Color Yellow Urine Appearance Clear Urine pH 6.0 Ur Specific [place] > 1.060 H Urine Protein Negative Urine Ketones Negative Urine Blood 2+ A Urine Nitrate Negative Urine Bilirubin Negative Urine Urobilinogen Negative Ur Leukocyte Esterase Negative Urine WBC (Auto) Absent Urine RBC (Auto) 2+(6-10/hpf) A Urine Bacteria Absent Urine Glucose Negative 12/27/18 10:29 WBC 8.9 RBC 4.27 Hgb 12.8 L Hct 38 L MCV 90 MCH 30 MCHC 34 RDW 17 H Plt Count 178 MPV 7.2 L Neut % (Auto) 83.5 Lymph % (Auto) 6.7 [place] % (Auto) 9.4 Eos % (Auto) 0.0 Baso % (Auto) 0.4 Absolute Neuts (auto) 7.4 Absolute Lymphs (auto) 0.6 L Absolute Monos (auto) 0.8 Absolute Eos (auto) 0.0 Absolute Basos (auto) 0.0 Absolute Nucleated RBC 0.0 Nucleated RBC % 0.0 INR (Anticoag Therapy) APTT Sodium Potassium Chloride Carbon Dioxide Anion Gap BUN Creatinine Est GFR ( Amer) Est GFR (Non-Af Amer) BUN/Creatinine Ratio Glucose Lactic Acid Calcium Total Bilirubin AST ALT Alkaline Phosphatase Troponin I C-Reactive Protein Total Protein Albumin Globulin Albumin/Globulin Ratio Urine Color Urine Appearance Urine pH Ur Specific [place] Urine Protein Urine Ketones Urine Blood Urine Nitrate Urine Bilirubin Urine Urobilinogen Ur Leukocyte Esterase Urine WBC (Auto) Urine RBC (Auto) Urine Bacteria Urine Glucose Exam: Gen: Chronically ill appearing talkative 73 yo male in NAD, accompanied by his daughter HEENT: MMM, no m/r/g Resp: CTA, no w/c/r Abd: soft, hepatomegaly noted, mild TTP over liver Ext: no edema Assessment: [This a 73 yo male with metastatic HCC, recently progressed while on trial with durvalumab at [facility] who started lenvatinib earlier this week who presented with fever, n/v and increased RUQ pain. CT was personally reviewed with radiology this am. There is a small tumor hemorrhage noted, ascites appears stable when compared to prior imaging and is unlikely to represent a hemoperitoneum. His constellation of symptoms either represent an acute infection or drug reaction to initiation of lenvatinib.] Plan: [1. Fever, n/v - cont empiric abx while awaiting final culture results, monitor for recurrent fever - no obvious source of infection is clear at this time 2. h/o PE - resume anticoagulation with Eliquis, tumor hemorrhage appears small and no evidence for hemoperitoneum 3. Metastatic HCC - he has a very large burden of disease within the liver and pulm lesions - primary oncology team is [facility] - hold lenvatinib at this time, will discuss plan for resuming therapy closer to discharge Dispo: cont empiric therapy while awaiting final cultures, reassess need for further abx and possible dc tomorrow]
[2018-12-27 11:08] LABS: Albumin 3.2 g/dL (3.2-5.2); Albumin/Globulin Ratio 0.8 (1-3); BUN/Creatinine Ratio 23.2 (8-20); Calcium 8.8 mg/dL (8.6-10.3); EGFR African American 112.1 (>60); EGFR Non-African American 92.6 (>60); Globulin 3.8 g/dL (2-4); Potassium 4.3 mmol/L (3.5-5.0); Total Bilirubin 2.3 mg/dL (0.2-1.0)
[2018-12-27] MEDS: Cefepime 2 GM in Dextrose(*) 2 GM/50 ML BAG IV SCH ×2 (13:42→23:49)
[2018-12-27] MEDS: Apixaban* 5 MG TAB PO SCH (19:42)
[2018-12-28] MEDS: Morphine INJ* 2 MG/ML 1 ML SYRINGE (TWO MG - NEW SYRINGE VERSION) IV PRN (05:37)
[2018-12-28] MEDS: NS 0.9% 1000 ML** 1,000 ML IV SCH (05:39)
[2018-12-28 06:21] LABS: ABS Lymphocytes 0.6 10^3/ul (1.0-4.8); ABS Monocytes 0.9 10^3/ul (0-0.8); Hematocrit 33 % (42-52); Hemoglobin 11.2 g/dL (14.0-18.0); Lymphocyte % 9.5 %; Mean Corpuscular HGB Conc 34 g/dL (31-36); Mean Corpuscular Hemoglobin 30 pg (27-31); Mean Corpuscular Volume 89 fL (80-94); Mean Platelet Volume 7.5 fL (7.4-10.4); Platelet Count 159 10^3/uL (150-450); Red Blood Count 3.72 10^6 /uL (4.18-5.48); Red Cell Distribution Width 17 % (10-15); White Blood Count 6.5 10^3/uL (3.5-10.8)
[2018-12-28 06:39] LABS: Albumin 2.6 g/dL (3.2-5.2); Albumin/Globulin Ratio 0.8 (1-3); BUN/Creatinine Ratio 25.3 (8-20); Calcium 8.8 mg/dL (8.6-10.3); EGFR Non-African American 96.7 (>60); Globulin 3.4 g/dL (2-4); Potassium 3.9 mmol/L (3.5-5.0); Total Bilirubin 2.1 mg/dL (0.2-1.0)
[2018-12-28] MEDS: Apixaban* 5 MG TAB PO SCH (08:22)
[2018-12-28] MEDS: Hydrochlorothiazide TAB* 25 MG PO SCH (08:24)
[2018-12-28] MEDS: Famotidine TAB* 20 MG PO SCH (08:24)
[2018-12-28] MEDS: Valsartan TAB* 160 MG PO SCH (08:24)
[2018-12-28] MEDS: Pantoprazole TAB * 40 MG TAB PO SCH (08:24)
[2018-12-28 10:03] LABS: C Reactive Protein 164.24 mg/L (<8.01)
--- NOTE | 2018-12-28 13:13 | DS ---
CC: Dr. Figueroa; Dr. Quiroga; Dr. Alex Colindres, [address] [place] [address], phone number [phone] * DISCHARGE SUMMARY: DATE OF ADMISSION: 12/27/18 DATE OF DISCHARGE: 12/28/18 PRIMARY CARE PROVIDER: Dr. Quiroga. PRIMARY ONCOLOGIST: At [facility] is Dr. Lucy Colindres. Address : [address] [place] [address]. Phone number [phone]. PRIMARY LOCAL ONCOLOGIST: Dr. Etta Figueroa. ATTENDING PHYSICIAN: Dr. Fahad Moreno.* (DICTATED BY LINDA BETANCOURT) DISCHARGING PROVIDER: LINDA Betancourt. PRIMARY DISCHARGE DIAGNOSES: 1. Acute febrile illness - infectious versus drug related. 2. Metastatic hepatocellular carcinoma. 3. History of pulmonary embolism. DISCHARGE MEDICATIONS: 1. Eliquis 5 mg p.o. twice daily. 2. Aspirin 81 mg p.o. daily. 3. Valsartan/hydrochlorothiazide 160/25 one tablet p.o. daily. 4. Zofran 4 mg p.o. q.4 hours as needed for nausea and vomiting. 5. Oxycodone 5 to 10 mg p.o. q.6 hours as needed for pain. 6. Ranitidine 150 mg p.o. twice daily. HOSPITAL IMAGIN. Chest x-ray, 12/26/18: Pulmonary nodules which are unchanged with a small left pleural effusion which is also unchanged. 2. CT abdomen and pelvis, 12/26/18: Demonstrates mild bibasilar fibro- atelectatic change with trace pleural effusion. Right base pulmonary nodules consistent with metastatic disease. Multiple hepatic masses consistent with metastasis, increased since 09/05/18. Some of the masses demonstrate internal contained hemorrhage or pseudoaneurysm. Minimal perihepatic fluid which appears similar to prior study, question of trace hemoperitoneum. HOSPITAL COURSE: This is a 73-year-old gentleman with metastatic HCC, who up until recently has been a clinical trial patient at [facility] under the care of Dr. Lucy Colindres, who was receiving durvalumab on trial, who unfortunately experienced progression of disease while on trial and has since been started on lenvatinib. The patient started lenvatinib on Saturday, . He noted over the first 2 days, 20 mmHg jump in his blood pressure and subsequently developed diarrhea, multiple episodes of vomiting, and a fever up to approximately 101.5 degrees Fahrenheit. He was directed to the emergency department for further evaluation. Temperature peaked at 100.9 degrees Fahrenheit in the emergency department. His initial labs showed a normal white blood cell count at 9400, hemoglobin of 14.2, and platelets of 218,000. Diff was notable to be primarily neutrophils. INR of 2.18. Chemistries: Sodium of 130. Normal renal function. Initial lactic acid of 2.6, total bilirubin of 2.4 with AST of 204, ALT of 104, and a CRP of 142. Urinalysis showed a concentrated sample with 2+ blood. Blood cultures were subsequently collected and eventually negative for growth. Chest x- ray showed no infiltrate and a CT scan was completed which demonstrated interval progression of his hepatic masses and was initially read as a concern for trace hemoperitoneum with possibility of bleeding within his hepatic masses. The patient received empiric antibiotics in the emergency department. His anticoagulation was held and he was subsequently admitted to the hospital. The patient has remained afebrile throughout his 36-hour hospital stay. His blood cultures were eventually negative and no obvious source of infection was identified. The patient's nausea, vomiting, and diarrhea resolved, and he was not hypertensive during his hospital stay. Initial CT scan was closely reviewed with Radiology which did show a small amount of hemorrhage within one of his hepatic masses but the perihepatic fluids and fluid within the pelvis appeared consistent with prior CT examinations and was unlikely to represent hemoperitoneum. The patient was empirically continued on cefepime during this hospitalization. It was not clear as to whether his presenting symptoms were infectious versus drug related. Certainly the timing of his initiation of lenvatinib and constellation of initial hypertension, nausea, vomiting, diarrhea , and subsequent fever was suspicious for this to be drug reaction. Cultures were negative but this certainly could have been a transient viral illness as well. I had a long discussion with the patient and his during this hospitalization in terms of goals of care. He is now off of trial at [facility] and could consider transitioning his further oncology care back locally. He has previously been seen by Dr. Figueroa. DISPOSITION AND FOLLOWUP PLAN: The patient is being discharged to home in stable condition where he lives with his . We will plan to continue antibiotics empirically with cefdinir for an additional 7 days. Recommend that he follow closely with Dr. Alex Colindres in terms of recommendation for resuming his lenvatinib, but at this time recommended that he continue to hold it. Could consider either resuming at full dose or with a dose reduction and closely follow for recurrent toxicity. The patient has followup at [facility] in approximately 10 days and is available to follow up locally with Dr. Figueroa if necessary. Discussed local options for palliative and hospice services. At that time, they determined that that is most appropriate. LINDA BETANCOURT [id number]/[facility] #: [id number] MTDD
[2018-12-28 13:31] VITALS: BP 99/49
[2018-12-28] MEDS: Cefepime 2 GM in Dextrose(*) 2 GM/50 ML BAG IV SCH (13:44)
== END 2018-12-28 14:35 | disposition home or self-care (01) | DRG 864 ==
LOC: ED 16:24 → MED 12-27 00:36
PROVIDERS: ADMIT Internal Medicine; ATTEND Internal Medicine Hematology & Oncology
DX: R50.2 Drug induced fever (principal); C22.0 Liver cell carcinoma; C78.01 Secondary malignant neoplasm of right lung; E87.1 Hypo-osmolality and hyponatremia; R18.8 Other ascites; T45.1X5A Adverse effect of antineoplastic and immunosuppressive drugs, initial encounter; R69 Illness, unspecified; I25.10 Atherosclerotic heart disease of native coronary artery without angina pectoris; I10 Essential (primary) hypertension; N40.0 Benign prostatic hyperplasia without lower urinary tract symptoms; Y92.9 Unspecified place or not applicable; Z86.711 Personal history of pulmonary embolism; Z79.01 Long term (current) use of anticoagulants; Z95.5 Presence of coronary angioplasty implant and graft; Z79.82 Long term (current) use of aspirin; Z79.899 Other long term (current) drug therapy; Z88.1 Allergy status to other antibiotic agents; Z88.0 Allergy status to penicillin; Z88.8 Allergy status to other drugs, medicaments and biological substances; Z80.0 Family history of malignant neoplasm of digestive organs; Z80.3 Family history of malignant neoplasm of breast; Z80.42 Family history of malignant neoplasm of prostate; Z82.49 Family history of ischemic heart disease and other diseases of the circulatory system; Z86.718 Personal history of other venous thrombosis and embolism
CPT/HCPCS: 36415; 71045; 74177; 80053; 81003; 81015; 83605; 84484; 85025; 85610; 85730; 86140; 87040; 93005; 99233; 99239; 99284; A9270-GY; J0692; J2270; J2405; Q9967